=== PATIENT | male | born 1960 | race Caucasian/White ===

== ENCOUNTER 2016-12-28 04:10 | Inpatient (IN) | payer OTHER ==
[~2016-12-28] VITALS: Ht 162.6 cm; Wt 44.5 kg
[2016-12-28] VITALS (8 sets, daily range): BP systolic 89–113; BP diastolic 54–75
[~2016-12-28 04:10] MED LIST: PROPOFOL 200 MG/20 ML VIAL IV ONE
--- NOTE | 2016-12-28 04:10 | NUR ---
PT ANABEL ALS. TAKEN TO BED 11
--- NOTE | 2016-12-28 04:26 | NUR ---
Dr. Bruno evaluating patient at bedside.
[2016-12-28] MEDS ORDERED: NACL 0.9% 500 ML IV ONE ×2 (04:35)
[2016-12-28] MEDS ORDERED: MSCON15 PEG (04:36)
[2016-12-28] MEDS ORDERED: PANT40EC PEG (04:36)
[2016-12-28] MEDS ORDERED: HEPA500056 SUBQ (04:36)
[2016-12-28] MEDS ORDERED: ONDA4TAB PEG (04:36)
[2016-12-28] MEDS ORDERED: ASPI81CT89 PEG (04:36)
[2016-12-28] MEDS ORDERED: PUL.5N NEB (04:36)
[2016-12-28] MEDS ORDERED: ACET10SO IH (04:36)
[2016-12-28] MEDS ORDERED: MAGN400T7 PEG (04:36)
[2016-12-28] MEDS ORDERED: CARV6.25 PEG (04:36)
[2016-12-28] MEDS ORDERED: ATOR10TA PEG (04:36)
[2016-12-28] MEDS ORDERED: BEN50 PEG (04:36)
--- NOTE | 2016-12-28 04:38 | NUR ---
PATIENT ARRIVED FROM [facility] BY EMS ON VENTILATOR FOR FALLING OUT OF BED. PT TRACH SIZE SHILEY 8.0 DCT, VENTILATOR SETTING PER EMT AC-15 VT-450 PEEP +5 FIO2-2LPM, BUT PUT ON 30% FIO2 ON [facility] VENTILATOR. BS CLEAR, UNABLE TO OBTAIN SPUTUM VIA TRACHEAL SUCTION (NO SECREATIONS)
--- NOTE | 2016-12-28 04:40 | NUR ---
ANABEL FROM [facility], S/P FALL OUT OF BED. PT HAS TRACH. UNABLE TO MOVE RT ARM ON OWN VERY WELL. PT DOES SPEAK AND GAVE ME HIS SISTER'S PH # TO CALL. Allison is his sister @ [phone]. I talked with her per patient's request and let her know he was here. HX: CARDIOMYOPATHY, HEART FAILURE, RESP. FAILURE, HEP C. PT DENIES N/V/D; SKIN IS PINK/WARM/DRY; AAOX4.LUNGS CLEAR BL;ABD SOFT/FLAT-GTT PRESENT, HR EVEN AND REGULAR; PT DENIES ANY CP OR SOB AT THIS TIME; PATIENT STATES PAIN OF 0/10 AT THIS TIME; VSS; PATIENT POSITIONED FOR COMFORT; HOB ELEVATED; BEDRAILS UP X2; BED DOWN. ER MD MADE AWARE OF PT STATUS.
[2016-12-28 05:29] LABS: BILIRUBIN,URINE NEGATIVE (NEGATIVE); BLOOD, URINE NEGATIVE (NEGATIVE); COLOR,URINE YELLOW (YELLOW); LEUKOCYTE ESTERASE ,URINE NEGATIVE (NEGATIVE); NITRITE, URINE NEGATIVE (NEGATIVE); UGLUCOSE NEGATIVE (NEGATIVE)
[2016-12-28 05:33] LABS: HEMATOCRIT 32.4 % (36-52); HEMOGLOBIN 10.4 g/dL (12.0-18.0); MEAN CORPUSCULAR HEMOGLOBIN 29 pg (27-31); MEAN CORPUSCULAR HGB CONC 32 g/dL (33-37); MEAN CORPUSCULAR VOLUME 90 fL (80-94); PLATELET COUNT (AUTO) 215 K/uL (140-450); RED BLOOD CELL COUNT(AUTO) 3.59 MIL/uL (4.20-6.10); RED CELL DISTRIBUTION WIDTH 15.1 % (11.6-13.7); WHITE BLOOD COUNT (AUTO) 11.4 K/uL (4.8-10.8)
[2016-12-28 05:46] LABS: PROTHROMBIN TIME 10.8 secs (10.8-13.4)
[2016-12-28 05:48] LABS: ALBUMIN 2.7 g/dL (3.4-5.0); CREATININE 0.3 mg/dL (0.7-1.3); POTASSIUM 4.2 mmol/L (3.5-5.1); TOTAL BILIRUBIN 0.1 mg/dL (0.0-1.0)
[2016-12-28 05:51] LABS: EOSINOPHILS % (MANUAL) 2 % (0-4); LYMPHOCYTES % (MANUAL) 16 % (20-46); MONOCYTES % (MANUAL) 4 % (5-12)
[2016-12-28 06:01] LABS: ANION GAP -2.8 (8-16)
--- NOTE | 2016-12-28 06:03 | NUR ---
PT TAKEN TO CT
--- NOTE | 2016-12-28 06:03 | NUR ---
Rahul he in [facility] - 12/28/16 at 0603 by PRUDENCE PT TAKEN TO BED 11
--- NOTE | 2016-12-28 06:24 | NUR ---
PT RETURN FROM CT
[2016-12-28 06:31] LABS: APPEARANCE,URINE HAZY (CLEAR)
[2016-12-28 06:32] LABS: RBC,URINE 0-5 (RARE) /HPF (0-5); WBC,URINE 0-5 (RARE) /HPF (0-5)
[2016-12-28] MEDS ORDERED: ACETAMINOPHEN 650 MG/20.3 ML UDC ONE (06:43)
--- NOTE | 2016-12-28 07:10 | NUR ---
REPORT TO SMOOTH LEONG
[2016-12-28] MEDS ORDERED: ALBUTEROL SULFATE/IPRATROPIU 3 ML SOL IH SCH ×2 (07:55→11:00)
[2016-12-28] MEDS ORDERED: ALBUTEROL SULFATE/IPRATROPIU 3 ML SOL IH ONE (08:00)
[2016-12-28] MEDS ORDERED: MORPHINE TAB ER 15 MG TABER PO PRN (08:05)
[2016-12-28] MEDS ORDERED: ONDANSETRON 4 MG TAB PEG PRN (08:05)
--- NOTE | 2016-12-28 08:45 | NUR ---
PT WAS TRANSPORTED FROM ER TO TELEMETRY FLOOR, SAME VENT SETTINGS. SPUTUM COLLECTED AT 0850; NO INCIDENTS DURING TRANSPORT. PT RESTING WITHOUT DISTRESS NOTED.
--- NOTE | 2016-12-28 08:45 | NUR ---
Patient will be admitted to care of DR REYES. Admited to [facility]. Will go to room 123B. Belongings list completed. Report to SMOOTH GARCIA.
[2016-12-28] MEDS ORDERED: ACETYLCYSTEINE 10% (100 MG/ML) 100 MG/ML VIAL INH SCH (09:00)
[2016-12-28] MEDS ORDERED: ENOXAPARIN 40 MG/0.4 ML SYR SUBQ SCH (09:00)
[2016-12-28] MEDS ORDERED: PANTOPRAZOLE 40 MG TABEC PO SCH (09:00)
[2016-12-28] MEDS ORDERED: BUDESONIDE 0.5 MG/2 ML NEBU INH SCH (09:00)
[2016-12-28] MEDS ORDERED: CARVEDILOL 6.25 MG TAB PEG SCH (09:00)
--- NOTE | 2016-12-28 09:20 | NUR ---
PT RECEIVED FROM ED VIA GURNEY. PT WAS TRANSPORTED WITH TRACH TO [facility]. PT ALERT AND ORIENTED X4. PT IS ABLE TO MAKE NEEDS KNOWN BY GESTURING WITH HIS MOUTH DUE TO TRACH. PT IS ABLE TO LIFT ABLE WELL IN BED. HE IS ALSO ABLE TO MOVE RIGHT ARM SLIGHTLY BUT CAN NOT MOVE LEFT UPPER EXT AT ALL. G TUBE PRESENT AND CLAMP.
--- NOTE | 2016-12-28 09:53 | NUR ---
PATIENT HAS BEEN SCREENED AND CATEGORIZED HIGH NUTRITION RISK. PATIENT WILL BE SEEN WITHIN 1-2 DAYS OF ADMISSION. 12/28/16-12/29/[address]
--- NOTE | 2016-12-28 10:48 | NUR ---
PT CONTINUES ON PREVIOUS SETTINGS, RESTING COMFORTABLY WITHOUT DIISTRESS NOTED AT THIS TIME. PT WAS SUCTIONED, OBTAINED MODERATE THICK MOONEY YELLOW SECRETIONS, HR94,SAT93% ON 30% FI02
[2016-12-28] MEDS ORDERED: LANSOPRAZOLE 30 MG CAPDR PEG SCH (11:39)
[2016-12-28] MEDS ORDERED: ALBUTEROL SULFATE/IPRATROPIU 3 ML SOL IH PRN (11:40)
[2016-12-28] MEDS: LEVOFLOXACIN 750 MG/D5W PREMIX 150 ML IV SCH (11:42)
[2016-12-28] MEDS: ASPIRIN 81 MG TAB.CHEW PEG SCH (11:46)
[2016-12-28] MEDS: MAGNESIUM OXIDE 400 MG TAB PEG SCH ×2 (11:48→21:55)
--- NOTE | 2016-12-28 12:15 | NUR ---
PT REMAINS AWAKE AND CALM IN BED. PT IS NSR IN THE MONITOR. NO ACUTE DISTRESS NOTED. SIDE RAILS UP X2 PER PT'S REQUEST. PT IS BEING SUCTIONED FREQUENTLY, SUCTIONING THICK WHITE SPUTUM.
[2016-12-28] MEDS: ALBUTEROL SULFATE/IPRATROPIU 3 ML SOL IH SCH ×2 (12:54→19:37)
--- NOTE | 2016-12-28 13:57 | NUR ---
ABG DRAWN ON RR WITHOUT INCIDENT AND AT 1410 RESULTS WERE CALLED TO DR. GALVIN BY RT KATHY GALDAMEZ WITH NO CHANGES MADE TO VENT.
[2016-12-28] MEDS: MORPHINE SULFATE 4 MG/ML SYR IVP PRN (14:29)
--- NOTE | 2016-12-28 14:30 | NUR ---
MORPHINE SULFATE 2MG IVP GIVEN AT 1429 FOR C/O RIGHT ARM PAIN 10/30.
--- NOTE | 2016-12-28 17:29 | NUR ---
PT RESTING COMFORTABLY WITHOUT DISTRESSNOTED AT THIS TIME
[2016-12-28] MEDS: ATORVASTATIN 20 MG TAB PEG SCH (18:18)
[2016-12-28] MEDS: NACL 0.9% 1,000 ML IV SCH ×2 (18:19→20:35)
[2016-12-28] MEDS: CARVEDILOL 6.25 MG TAB PEG SCH (18:21)
--- NOTE | 2016-12-28 19:30 | NUR ---
PT IN BED AWAKE AND CALM. NO ACUTE DISTRESS NOTED. PT REMAINS NSR ON THE MONITOR. V/S STABLE.
[2016-12-28] MEDS: BUDESONIDE 0.5 MG/2 ML NEBU INH SCH (19:40)
--- NOTE | 2016-12-28 19:51 | NUR ---
RCV'D PT ON MECHANICAL VENTILATION WITH SHILEY 8 DCT TRACH. VENT SETTINGS ARE AC 15,450,30%,+[address] AND SECURED. STOMA IS CLEAN. VENT IS CONNECTED TO RED OUTLET. ALARMS ARE WORKING AND AUDIBLE. AMBU BAG AT BEDSIDE. NO SOB OR DISTRESS NOTED. PT IS ALERT. SPO2 93% HR 98 BS CLEAR HHN TX GIVEN. WILL CONTINUE TO MONITOR.
--- NOTE | 2016-12-28 20:00 | NUR ---
RECIEVED PATIENT WITH VENT AND TRACHEOSTOMY BREATHING EVEN AND UNLABORED VITAL STABLE WILL CONTINUE MONITORING PATEINT.
[2016-12-28] MEDS ORDERED: diphenhydrAMINE 12.5 MG/5 ML UDC PEG PRN (21:00)
--- NOTE | 2016-12-28 21:10 | NUR ---
PAGED DR COLLIER TO VERIFY ORDER OF PULMICORT 2 MG WHICH MEANS 4 VIALS OF 0.5MG. SPOKE WITH FORM SETTER SUPERVISOR DR WHICH IS DR MALIN. AND DR MALIN SAID TO GIVE 2 MG ORDERED. I ONLY GAVE 0.5MG I DID NOT FEEL COMFORTABLE WITH ORDER. PT PRESSURES ARE IN NORMAL RANGES. CLEAR BREATH SOUNDS. SPO2 93% ON 30% FIO2. PT IS ALERT. NO SOB OR DISTRESS NOTED. INFORMED DIRECTOR MARNIE. WILL KEEP MONITORING PT.
[2016-12-28] MEDS ORDERED: diphenhydrAMINE 12.5 MG/5 ML UDC ONE (21:47)
[2016-12-28] MEDS: acetaZOLAMIDE 250 MG TAB GT SCH (21:57)
[2016-12-29] VITALS: BP 117/70
[2016-12-29] MEDS: MORPHINE SULFATE 4 MG/ML SYR IVP PRN ×3 (00:11→11:18)
[2016-12-29] MEDS: ALBUTEROL SULFATE/IPRATROPIU 3 ML SOL IH SCH ×3 (01:37→14:11)
--- NOTE | 2016-12-29 01:47 | NUR ---
HHN TX OF DUONEB GIVEN. PT IS AWAKE. SXN'D PER PT REQUEST BUT NOTHING CAME OUT. BS CLEAR AND DIMINISHED. NO SOB OR DISTRESS NOTED. WILL CONTINUE TO MONITOR.
[2016-12-29 04:00] VITALS: BP 121/55
--- NOTE | 2016-12-29 04:40 | NUR ---
MEDICATED PRN FOR LEG PAIN, REPOSITION FOR COMFORT, 5ML G-TUBE RESIDUAL NOTED, KEEP HOB ELEVATED AT ALL TIMES, MONITORED CLOSELY.
[2016-12-29 06:07] LABS: BASOPHILS # (AUTO) 0.3 K/uL (0.00-0.22); BASOPHILS % (AUTO) 2.6 % (0.0-2.0); EOSINOPHILS # (AUTO) 0.1 K/uL (0-0.4); EOSINOPHILS % (AUTO) 0.9 % (0.0-4.0); HEMOGLOBIN 9.8 g/dL (12.0-18.0); LYMPHOCYTES # (AUTO) 1.8 K/uL (2.0-11.5); LYMPHOCYTES % (AUTO) 15.9 % (20.5-51.1); MEAN CORPUSCULAR HEMOGLOBIN 29 pg (27-31); MEAN CORPUSCULAR HGB CONC 33 g/dL (33-37); MEAN CORPUSCULAR VOLUME 89 fL (80-94); MONOCYTES % (AUTO) 8.6 % (1.7-9.3); PLATELET COUNT (AUTO) 219 K/uL (140-450); RED BLOOD CELL COUNT(AUTO) 3.37 MIL/uL (4.20-6.10); RED CELL DISTRIBUTION WIDTH 15.1 % (11.6-13.7); WHITE BLOOD COUNT (AUTO) 11.2 K/uL (4.8-10.8)
--- NOTE | 2016-12-29 06:19 | NUR ---
kEPT PATIENT COMFORTABLE OVERNIGHT HAD COMPLAINT OF ON AND OFF PAIN , PAIN MEDS GIVEN ORDERED PRN . VITAL SIGNS STABLE ALL CARES GIVEN.
[2016-12-29 06:28] LABS: ANION GAP 6.8 (8-16); CARBON DIOXIDE 35.1 mmol/L (21-32); CREATININE 0.5 mg/dL (0.7-1.3); POTASSIUM 3.9 mmol/L (3.5-5.1)
[2016-12-29] MEDS ORDERED: PANTOPRAZOLE 40 MG TABEC PO SCH (06:30)
[2016-12-29] MEDS ORDERED: LANSOPRAZOLE 30 MG CAPDR PEG SCH (06:30)
--- NOTE | 2016-12-29 06:50 | NUR ---
PT HAD LARGE SOFT BM, PERINEAL CARE DONE, REPOSITION FOR COMFORT, SUCTION ORALLY WITH YANKAUER, WHITE SECRETION MODERATE AMOUNT NOTED, PT MOUTH WORDS THAT HE WANTS TO GO BACK TO [facility], WILL ENDORSE, MONITORED CLOSELY.
--- NOTE | 2016-12-29 07:15 | NUR ---
RECEIVED REPORT FROM THE ROLL FILLER NURSE AT BEDSIDE FOR CONTINUITY OF CARE. PT IS AWAKE AND ORIENTED. PT HAS A VENT TO TRACH. PEEP 5, FIOS 30%, AC 15. PT VERBALIZES BY MOUTHING THE WORDS. PT WOULD LIKE TO GO BACK TO [facility] TODAY. PT HAS G TUBE, ISOSOURCE 80ML, H20 FLUSH Q6 HR 200ML. SITE IS DRY AND INTACT. FLOWING WELL. SKIN IS INTACT. SLIGHT REDNESS STARTING TO FORM FROM INCONTINENT DERMATITIS. IV ON L FA 20G NS AT 80ML/HR. PER ROLL FILLER RN, NO PNA, ATELECTASIS AND MUCOUS PLUG IN CHEST. LAB IS UNREMARKABLE EXCEPT LOW MG, 1.6. WILL NOTIFY MD WHEN HE ARRIVES. WOULD LIKE TO ME CALL HIS SISTER TO GET HERE SOON.
--- NOTE | 2016-12-29 07:30 | NUR ---
V/S WITHIN NORMAL RANGE. DENIES PAIN. PT IS COLD. PUT A BLANKET ON HIM. ADMISSIONS WAS HERE. PUT UP SIGN STATING FAMILY WILL NEED TO COME BY AND SIGN PAPERS. WILL CONTINUE TO MONITOR PT.
[2016-12-29 08:00] VITALS: BP 120/67
--- NOTE | 2016-12-29 08:01 | NUR ---
RECEIVED PT STABLE ON VENT SUPPORT AT DOCUMENTED SETTINGS, SXN'D SCANT CLEAR WHITE THIN SECRETIONS, HHN TX GIVEN, TOLERATED WELL, NO RESP DISTRESS OR SOB NOTED, SHILEY 8 DCT SECURED/MIDLINE/PATENT, CONT PULSE OX ON, ALARMS SET AND AUDIBLE, VENT PLUGGED INTO RED OUTLET, AMBU BAG BEDSIDE, WILL CONTINUE TO MONITOR.
[2016-12-29] MEDS: BUDESONIDE 0.5 MG/2 ML NEBU INH SCH (08:37)
[2016-12-29] MEDS ORDERED: LEVOFLOXACIN 750 MG/D5W PREMIX 150 ML IV SCH (09:00)
[2016-12-29] MEDS: NACL 0.9% 1,000 ML IV SCH (09:05)
[2016-12-29] MEDS: acetaZOLAMIDE 250 MG TAB GT SCH (09:22)
[2016-12-29] MEDS: ATORVASTATIN 20 MG TAB PEG SCH (09:23)
[2016-12-29] MEDS: MAGNESIUM OXIDE 400 MG TAB PEG SCH (09:23)
[2016-12-29] MEDS: ASPIRIN 81 MG TAB.CHEW PEG SCH (09:23)
[2016-12-29] MEDS: CARVEDILOL 6.25 MG TAB PEG SCH (09:23)
[2016-12-29] MEDS: LEVOFLOXACIN 750 MG/D5W PREMIX 150 ML IV SCH (09:24)
--- NOTE | 2016-12-29 09:30 | NUR ---
STOPPED THE FEEDING. CHECKED FOR PLACEMENT. CHECKED FOR RESIDUAL. NONE. CHECK FOR PATENCY. CRUSHED ALL MEDS AND ADMINISTERED VIA G TUBE. PT TOLERATED WELL. PT IS GETTING HOT, WANTED A FAN. FOUNTAIN PEN NIBS INSPECTOR CHANGED PT AND REPOSITIONED HIM BUT HE DID NOT WANT TO BE REPOSITIONED. WE EAXPLAINED THE RISKS OF P U. PT VERBALIZED UNDERSTANDING BUT HE DOES NOT CARE. HE DOESN'T WANT THE PILLOW UNDER HIS BACK AND DOESN'T WANT THE ROLLED UP TOWEL ON THE SIDE OF HIS HEAD. HE SAYS HE DOESN'T CARE. HE DOESN'T WANT IT. REMOVED THE PILLOW AND TOWEL. HE TRIED TO KICK THE FOUNTAIN PEN NIBS INSPECTOR AND CURSED AT HER. WILL CONTINUE TO MONITOR PT. Addendum: 12/29/16 at 1214 by Concepcion Menendez RN LATE ENTRY. RESTARTED FEEDING.
[2016-12-29] MEDS ORDERED: LEVO750T2 PEG (09:33)
[2016-12-29] MEDS ORDERED: DIA250 GT (09:33)
[2016-12-29] MEDS ORDERED: CARVEDILOL 3.125 MG TAB PEG SCH ×2 (09:55→17:00)
--- NOTE | 2016-12-29 10:30 | NUR ---
CM NOTE SPOKE W/ BENJAMIN FROM [facility]. MADE AWARE THAT PATIENT HAS DC ORDERS. PER BENJAMIN, SHE WILL BE ABLE TO TAKE PATIENT BACK AND CURRENTLY IN THE PROCESS OF RE-ARRANGING ROOMS. WILL BE CONTACTED SOON ON WHERE AND WHEN PATIENT CAN BE DISCHARGED.
--- NOTE | 2016-12-29 10:30 | NUR ---
CM NOTE INITIAL REVIEW FAXED TO [facility] / FAX# [phone], ATTN: NIC #[phone]
--- NOTE | 2016-12-29 10:54 | NUR ---
PT NOW HAS A FAN. PT WET. CHANGED PT. TRIED REPOSITIONING PT, BUT NO. HE DOESN'T WANT TO BE BOTHERED. PULLED UP. WANTS TO KNOW WHEN HE WILL BE TRANSFERRED BACK TO FACILITY. TOLD HIM WE'RE WORKING ON IT. WILL CONTINUE TO MONITOR PT.
[2016-12-29 12:01] VITALS: BP 155/89
--- NOTE | 2016-12-29 12:14 | NUR ---
PT CLAIMS THE BED WAS MOVING. CHECKED THE BED. BRAKE ON. BED IS NOT MOVING. EXPLAINED POSSIBLY PT WAS SLIDING DOWN ON HIS BED SINCE HE IS SITTING UP IN HIGH FOWLERS. WILL CONTINUE TO MONITOR PT.
--- NOTE | 2016-12-29 14:02 | NUR ---
ANITA YANCEY LM W/ BENJAMIN AT [facility] [place] RE. DISCHARGE. [phone]
--- NOTE | 2016-12-29 14:23 | NUR ---
CM NOTE PATIENT TO BE TRANSFERRED BY [facility] GOING TO [facility] RM 3B. ETA [id number]. CAROL REBOLLAR MADE AWARE. AUTH# PROVIDED BY [facility]: #[id number]
[2016-12-29] MEDS: LORazepam 2 MG/ML VIAL IVP PRN ×2 (14:57→14:59)
--- NOTE | 2016-12-29 15:20 | NUR ---
[facility] EARLY. GAVE REPORT TO TRANSPORTER. COPIER TECHNICIAN GETTING PT READY INTO TRANSPORT GOWN. REMOVED ID BANDS, TELE MONITOR, IV, CANNULA INTACT. NO BLEEDING NOTED. D/C'D TUBE FEEDING. PT IN STABLE CONDITION. SMILING, HAPPY TO GO BACK TO HIS FACILITY. ALL PERSONAL BELONGINGS IN BAG.
--- NOTE | 2016-12-29 15:34 | NUR ---
GAVE REPORT TO SMOOTH WILKINSON AT [facility]. PT IS READY TO GO BACK TO HIS FACILITY, BED 3B. [facility] IN THE PROCESS OF TRANSFERRING ON TO [facility].
--- NOTE | 2016-12-29 15:40 | NUR ---
[facility] TAKING PT ON A GURNEY BACK TO [facility]. PT IN STABLE CONDITION.
== END 2016-12-29 15:40 | DRG 140 ==
LOC: MED 04:10 → MTU 08:05
PROVIDERS: ADMIT Hospitalist; ATTEND Hospitalist
PROC: 5A1935Z Respiratory Ventilation, Less than 24 Consecutive Hours (ICD-10-PCS; principal; 2016-12-28)
PROC: 5A1935Z Respiratory Ventilation, Less than 24 Consecutive Hours (ICD-10-PCS; 2016-12-29)
DX: J44.0 Chronic obstructive pulmonary disease with (acute) lower respiratory infection (principal); Z99.11 Dependence on respirator [ventilator] status; J18.9 Pneumonia, unspecified organism; J96.10 Chronic respiratory failure, unspecified whether with hypoxia or hypercapnia; T17.890A Other foreign object in other parts of respiratory tract causing asphyxiation, initial encounter; R64 Cachexia; Z93.0 Tracheostomy status; G82.20 Paraplegia, unspecified; R13.10 Dysphagia, unspecified; Z66 Do not resuscitate; J98.11 Atelectasis; B18.2 Chronic viral hepatitis C; F20.9 Schizophrenia, unspecified; J98.19 Other pulmonary collapse; Z88.0 Allergy status to penicillin; Z79.82 Long term (current) use of aspirin; Z79.899 Other long term (current) drug therapy; Z93.1 Gastrostomy status; Z87.891 Personal history of nicotine dependence; Y93.89 Activity, other specified; W06.XXXA Fall from bed, initial encounter; Y92.128 Other place in nursing home as the place of occurrence of the external cause; Y99.8 Other external cause status; Z74.01 Bed confinement status
CPT/HCPCS: 36415; 36600; 70450; 71010; 71250; 72125; 73030; 80048; 80053; 81001; 82803; 83605; 83735; 83880; 84484; 85025; 85610; 85730; 87040; 87070; 87077; 87086; 87186; 87205; 93005; 94002; 94003; 94640; 96360; 99285; J1644; J1956; J2060; J2270; J2704; J7030; J7620; J7626; Q0092; Q0163

== ENCOUNTER 2017-02-02 20:49 | Emergency (ER) | payer OTHER ==
[~2017-02-02] VITALS: Ht 172.7 cm; Wt 44.5 kg
[~2017-02-02 20:49] MED LIST changes: +ACET10SO IH; +ASPI81CT89 PEG; +ATOR10TA PEG; +BEN50 PEG; +CARV6.25 PEG; +DIA250 GT; +HEPA500056 SUBQ; +LEVO750T2 PEG; +MAGN400T7 PEG; +MSCON15 PEG; +ONDA4TAB PEG; +PANT40EC PEG; -PROPOFOL 200 MG/20 ML VIAL IV ONE; +PUL.5N NEB
--- NOTE | 2017-02-02 20:49 | NUR ---
PT PLACED IN BED 2 BY EMS. RT AT BEDSIDE.
[2017-02-02] MEDS ORDERED: ALBUTEROL 0.083% 2.5 MG/3 ML NEBU INH ONE (21:10)
[2017-02-02 21:12] VITALS: BP 131/77
[2017-02-02 21:49] LABS: HEMATOCRIT 26.4 % (36-52); HEMOGLOBIN 8.6 g/dL (12.0-18.0); MEAN CORPUSCULAR HEMOGLOBIN 28 pg (27-31); MEAN CORPUSCULAR HGB CONC 32 g/dL (33-37); MEAN CORPUSCULAR VOLUME 87 fL (80-94); PLATELET COUNT (AUTO) 375 K/uL (140-450); RED BLOOD CELL COUNT(AUTO) 3.04 MIL/uL (4.20-6.10); RED CELL DISTRIBUTION WIDTH 14.9 % (11.6-13.7)
[2017-02-02 22:01] LABS: CARBON DIOXIDE 37.6 mmol/L (21-32); CREATININE 0.5 mg/dL (0.7-1.3); POTASSIUM 4.6 mmol/L (3.5-5.1)
[2017-02-02 22:07] LABS: ALBUMIN 2.7 g/dL (3.4-5.0); TOTAL BILIRUBIN 0.1 mg/dL (0.0-1.0)
[2017-02-02 22:18] LABS: WHITE BLOOD COUNT (AUTO) 18.3 K/uL (4.8-10.8)
[2017-02-02 22:19] LABS: LYMPHOCYTES % (MANUAL) 7 % (20-46); MONOCYTES % (MANUAL) 5 % (5-12)
--- NOTE | 2017-02-02 22:33 | NUR ---
56Y/M BIBA FROM [facility] C/O SOB. HX HEART FAILURE, HEP. C, TRACH, MECH. VENT. ALLERGY TO PENICILLNS. PER EMS PT WAS HAVING SOB X1 HOUR, PT DENIES PAIN, N/V/D. PT IS AA&OX4. BL BREATH SOUNDS DIMINSHED THROUGHOUT. PT HAS GTUBE INTACT. SKIN INTACT. ER MD AWARE OF PT STATUS, SIDE RAILS UP X2.
[2017-02-02] MEDS ORDERED: LEVOFLOXACIN 750 MG/D5W PREMIX 150 ML IV ONE (22:45)
--- NOTE | 2017-02-02 23:02 | NUR ---
TRIED PERFORMING AN ABG. AFTER A FAILED ATTEMPTED HE NO LONGER LET US TRY AGAIN. I INFORMED THE DR AND HE SAID TO THAT I WAS FINE. PATIENT O2 SATURATION WAS 98% AND DOESNT APPEAR TO BE IN ANY DISTRESS.
[2017-02-02] MEDS ORDERED: LEVOFLOXACIN 750 MG TAB GT ONE (23:30)
--- NOTE | 2017-02-03 01:19 | NUR ---
REPORT CALLED TO [facility] TO [facility] 45 MIN.
--- NOTE | 2017-02-03 01:28 | NUR ---
[facility] at bedside for transfer/discharge.
[2017-02-03 01:35] VITALS: BP 131/77
--- NOTE | 2017-02-03 01:48 | NUR ---
Patient discharged with v/s stable. Written and verbal after care instructions given and explained. Patient alert, oriented and verbalized understanding of instructions. Ambulance Transport with to retirement. All questions addressed prior to discharge. ID band removed. Patient advised to follow up with PMD. Rx of LEVAQUIN 500MG given. Patient educated on indication of medication including possible reaction and side effects. Opportunity to ask questions provided and answered.
== END 2017-02-03 01:48 ==
LOC: MED 20:49
DX: J96.10 Chronic respiratory failure, unspecified whether with hypoxia or hypercapnia (principal)
CPT/HCPCS: 36415; 71010; 80053; 84484; 85025; 87040; 87205; 89220; 93005; 94640; 99285; J7613; Q0092; 87070

== ENCOUNTER 2018-03-02 15:50 | Emergency (ER) | payer MEDICAID, OTHER ==
[~2018-03-02] VITALS: Ht 165.1 cm; Wt 76.2 kg
[~2018-03-02 15:50] MED LIST changes: -ACET10SO IH; -ASPI81CT89 PEG; +ATI.5 PO; -ATOR10TA PEG; -BEN50 PEG; -DIA250 GT; +FERR15DR3 PO; -LEVO750T2 PEG; -ONDA4TAB PEG; -PANT40EC PEG; -PUL.5N NEB; +QUET50TA PO
[2018-03-02 16:03] VITALS: BP 138/72
[2018-03-02 16:12] VITALS: BP 138/22
[2018-03-02 17:05] LABS: BASOPHILS % (AUTO) 0.2 % (0.0-2.0); EOSINOPHILS # (AUTO) 0.2 K/uL (0-0.4); EOSINOPHILS % (AUTO) 2.8 % (0.0-4.0); HEMATOCRIT 30.7 % (36-52); HEMOGLOBIN 9.9 g/dL (12.0-18.0); LYMPHOCYTES # (AUTO) 1.1 K/uL (2.0-11.5); LYMPHOCYTES % (AUTO) 13.3 % (20.5-51.1); MEAN CORPUSCULAR HEMOGLOBIN 28 pg (27-31); MEAN CORPUSCULAR HGB CONC 32 g/dL (33-37); MEAN CORPUSCULAR VOLUME 85.9 fL (80-94); MONOCYTES # (AUTO) 0.7 K/uL (0.8-1.0); MONOCYTES % (AUTO) 8.5 % (1.7-9.3); NEUTROPHILS # (AUTO) 6.4 K/uL (1.8-7.7); NEUTROPHILS % (AUTO) 75.2 % (42.2-75.2); PLATELET COUNT (AUTO) 234 K/uL (140-450); RED BLOOD CELL COUNT(AUTO) 3.57 MIL/uL (4.20-6.10); RED CELL DISTRIBUTION WIDTH 15.7 % (11.6-13.7); WHITE BLOOD COUNT (AUTO) 8.5 K/uL (4.8-10.8)
[2018-03-02 17:29] LABS: CARBON DIOXIDE 34.5 mmol/L (21-32); CREATININE 0.6 mg/dL (0.7-1.3); POTASSIUM 4.5 mmol/L (3.5-5.1)
[2018-03-02 17:30] LABS: ALBUMIN 2.9 g/dL (3.4-5.0); TOTAL BILIRUBIN 0.2 mg/dL (0.0-1.0)
[2018-03-02 19:42] VITALS: BP 132/62
== END 2018-03-02 19:42 ==
LOC: MED 15:50
DX: R06.02 Shortness of breath (principal); I50.9 Heart failure, unspecified; J44.9 Chronic obstructive pulmonary disease, unspecified; I42.9 Cardiomyopathy, unspecified; Z93.1 Gastrostomy status; Z79.01 Long term (current) use of anticoagulants; Z79.891 Long term (current) use of opiate analgesic; Z79.899 Other long term (current) drug therapy; Z88.0 Allergy status to penicillin
CPT/HCPCS: 36415; 71045; 80053; 83605; 83880; 85025; 87040; 99284; Q0092

== ENCOUNTER 2018-04-19 16:18 | Inpatient (IN) | payer MEDICAID ==
[~2018-04-19] VITALS: Ht 177.8 cm; Wt 58.5 kg
[~2018-04-19 16:18] MED LIST changes: -FERR15DR3 PO; +FERR15DR5 PEG
[2018-04-19 16:20] VITALS: BP 142/27
--- NOTE | 2018-04-19 16:20 | NUR ---
PLACED ON VENTILATOR WITH SETTINGS RECEIVED FROM [facility] NOTED BREATH SOUND COARSE RHONCHI BILATERAL SPUTUM OBTAINED
[2018-04-19 16:32] VITALS: BP 142/47
--- NOTE | 2018-04-19 16:53 | NUR ---
ANABEL FROM [facility], C/O VOMITING X 2 @ 1530 AND 1545. REPORTED THAT VOMIT WAS DARK RED. NO VOMITING AT THIS TIME. REPORTED THAT HE STARTED ANTIBIOTICS FOR PNA YESTERDAY. CHRONIC TRACH TO VENT. COARSE LUNG SOUND, SYMETRICAL. BED IS DOWN, LOCKED, BED RAILS X 2, ERMD NOTIFIED OF PATIENT CONDITION HX AND RX IN PACKET.
[2018-04-19] MEDS ORDERED: ONDANSETRON 4 MG/2 ML VIAL IVP ONE ×2 (17:05→19:10)
--- NOTE | 2018-04-19 17:16 | NUR ---
xray by bedside
--- NOTE | 2018-04-19 17:27 | NUR ---
LAB IN PATIENTS ROOM
[2018-04-19 17:45] LABS: BASOPHILS % (AUTO) 0.3 % (0.0-2.0); EOSINOPHILS % (AUTO) 0.1 % (0.0-4.0); HEMATOCRIT 31.8 % (36-52); HEMOGLOBIN 10.2 g/dL (12.0-18.0); LYMPHOCYTES # (AUTO) 1.3 K/uL (2.0-11.5); LYMPHOCYTES % (AUTO) 11.3 % (20.5-51.1); MEAN CORPUSCULAR HEMOGLOBIN 28 pg (27-31); MEAN CORPUSCULAR HGB CONC 32 g/dL (33-37); MEAN CORPUSCULAR VOLUME 86.1 fL (80-94); MONOCYTES % (AUTO) 8.4 % (1.7-9.3); NEUTROPHILS # (AUTO) 9.3 K/uL (1.8-7.7); NEUTROPHILS % (AUTO) 79.9 % (42.2-75.2); PLATELET COUNT (AUTO) 363 K/uL (140-450); RED BLOOD CELL COUNT(AUTO) 3.69 MIL/uL (4.20-6.10); WHITE BLOOD COUNT (AUTO) 11.6 K/uL (4.8-10.8)
[2018-04-19 18:09] LABS: ALBUMIN 2.8 g/dL (3.4-5.0); ANION GAP 6.9 (8-16); CREATININE 0.6 mg/dL (0.7-1.3); TOTAL BILIRUBIN 0.3 mg/dL (0.0-1.0)
--- NOTE | 2018-04-19 18:10 | NUR ---
ESCORTED PATIENT TO CT, RT PRESENT, VSS
[2018-04-19 18:20] LABS: CARBON DIOXIDE 42.1 mmol/L (21-32)
[2018-04-19 18:21] VITALS: BP 139/64
[2018-04-19 18:34] LABS: APPEARANCE,URINE SL CLOUDY (CLEAR); BILIRUBIN,URINE NEGATIVE (NEGATIVE); BLOOD, URINE TRACE-I (NEGATIVE); COLOR,URINE YELLOW (YELLOW); LEUKOCYTE ESTERASE ,URINE NEGATIVE (NEGATIVE); NITRITE, URINE NEGATIVE (NEGATIVE); PH,URINE 8.5 (5.0-9.0); UGLUCOSE NEGATIVE (NEGATIVE)
[2018-04-19 18:42] LABS: RBC,URINE 0-5 (RARE) /HPF (0-5)
--- NOTE | 2018-04-19 18:47 | NUR ---
FAMILY AT BEDSIDE
--- NOTE | 2018-04-19 19:01 | NUR ---
[address] BRANTLEY AWARE.
--- NOTE | 2018-04-19 19:02 | NUR ---
1850 SXNED PATIENT WITH NS LAVAGE. PT HAS BLOODY SECRETIONS
--- NOTE | 2018-04-19 19:05 | NUR ---
PATIENT COMPLAINING OF NAUSEA, DR BRANTLEY MADE AWARE. ORDERS RECIEVED.
--- NOTE | 2018-04-19 19:13 | NUR ---
RT AT BEDSIDE.
--- NOTE | 2018-04-19 19:13 | NUR ---
SMALL AMOUNT OF DARK BROWN VOMIT NOTED, ZOFRAN GIVEN ORDERED
--- NOTE | 2018-04-19 19:21 | NUR ---
REPORT GIVEN TO SMOOTH MASON, PATIENT VSS AT THIS TIME
[2018-04-19] MEDS ORDERED: HYDROcodone/APAP 5/325 MG 1 TAB TAB PO PRN (19:25)
[2018-04-19] MEDS ORDERED: ONDANSETRON 4 MG/2 ML VIAL IM/IVP PRN (19:25)
[2018-04-19] MEDS ORDERED: ACETAMINOPHEN 325 MG TAB PO PRN (19:25)
[2018-04-19] MEDS ORDERED: DOCUSATE SODIUM 100 MG GELCAP PO PRN (19:25)
--- NOTE | 2018-04-19 19:33 | NUR ---
192 PT VOMITTED COFFEE GROUND COLOR.. CLEANED PT AND TRACH CARE DONE. FAMILY AT BEDSIDE. ALSO SXNED BRIGHT RED BLOOD FROM TRACH
[2018-04-19] MEDS ORDERED: POTASSIUM CHLORIDE 20% 40 MEQ/15 ML UDC GT ONE (19:45)
[2018-04-19] MEDS ORDERED: AZITHROMYCIN 500 MG in DEXTROSE 5% 250 ML IV SCH (20:00)
[2018-04-19 20:18] LABS: BARBITURATE, URINE NEG. ng/ml (NEG <=200); BENZODIAZEPINE, URINE NEG. ng/mL (NEG <=200); CANNABINOID, URINE NEG. ng/mL (NEG <=50); COCAINE, URINE NEG. ng/mL (NEG <=300); OPIATE, URINE POS. ng/mL (NEG <=2000); PHENCYCLIDINE SCREEN,URINE NEG. ng/mL (NEG <=25)
[2018-04-19 20:28] LABS: PROTHROMBIN TIME 10.3 secs (10.8-13.4)
--- NOTE | 2018-04-19 20:29 | NUR ---
INFORMED DR AMARO THAT PT REFUSED BLOOD CULTURES FROM LAB. PT STATES TOO PANIFUL. A&OX4. VSS. CONTINUE TO MONITOR.
[2018-04-19 20:40] LABS: MAGNESIUM 2.2 mg/dL (1.8-2.4)
[2018-04-19 20:41] LABS: CHOL/HDL RATIO 3.4 (1-4.5); THYROID STIMULATING HORMONE 1.25 uIU/mL (0.34-3.74)
--- NOTE | 2018-04-19 21:00 | NUR ---
ADMITTED A 58 Y/O MALE FROM [facility]IA [facility] WITH CHIEF COMPLAINT OF VOMITING. PATIENT IS VENTILATOR DEPENDENT,VENTILATOR COMPUTER BUILDER BY RT,WAS UNCOOPERATIVE TO TREATMENT. TRANSFERRED PATIENT TO BED WITH 2 PERSON ASSIST. SKIN INTACT. MRSA NASAL SWAB DONE. PERSONAL BELONGINGS AT BEDSIDE TABLE(2 SMALL PILLOW).ROUTINE ADMISSION CARE DONE AND CARRY ORDERS. CHANGED/ CLEANED PATIENT AND PLACE IN COMFORTABLE POSITION WITH HOB ELEVATED.EXPLAINED PLAN OF CARE. CALL LIGHT WITHIN REACH. FALL PRECAUTION APPLIED.SUCTIONED PATIENT WITH WHITE SECRETIONS MINIMAL AMOUNT. PATIENT TOLERATED WELL. ALL NEEDS ATTENDED. WILL CONTINUE TO MONITOR
--- NOTE | 2018-04-19 21:10 | NUR ---
REPORT GIVEN AND CARE TRANSFERED TO ADILIA RN ROOM 122B. TRANSFERED VIA GURNEY WITH VSS.
--- NOTE | 2018-04-19 21:14 | NUR ---
2109 TRANSFERRED PT TO ROOM 122B. PT BEING BAGGED WITH 100% . PT PLACED BACK ON VENT WITH SAME SETTINGS. SXNED BRIGHT RED BLOOD FROM TRACH AND SXNED PT MOUTH. PT HAS COPIOUS AMTS OF SERETIONS FROM MOUTH
[2018-04-19] MEDS ORDERED: PANT40PK PEG (21:36)
[2018-04-19] MEDS ORDERED: ASPI-1718 PEG (21:36)
[2018-04-19] MEDS ORDERED: ASCO500T45 PEG (21:36)
[2018-04-19] MEDS ORDERED: GABA-638 PEG (21:36)
[2018-04-19] MEDS ORDERED: AZITHROMYCIN 500 MG INJ VIAL IV ONE (21:44)
--- NOTE | 2018-04-19 21:59 | NUR ---
PATIENT REFUSED TO LET ME DO AN EKG.
--- NOTE | 2018-04-19 21:59 | NUR ---
PLACED PT ON CONTINUOS POX
[2018-04-19] MEDS ORDERED: VANCOMYCIN PER PHARMACY MC PRN (22:10)
[2018-04-19] MEDS ORDERED: VANCOMYCIN 1GM/DEXT 5% PREMIX 200 ML IV SCH (23:00)
[2018-04-20] VITALS: BP 140/83
[2018-04-20] MEDS ORDERED: VANCOMYCIN 1,000 MG VIAL ONE (00:13)
--- NOTE | 2018-04-20 01:29 | NUR ---
LOWERED FIO2 TO 45%. SATS 100%
[2018-04-20] MEDS: DEXT 5% / NACL 0.45% 1,000 ML IV SCH ×3 (02:44→22:20)
--- NOTE | 2018-04-20 03:06 | NUR ---
PATIENT IN 45 % WITH SAT OF 100% CONTINUOUS POX. HOB ELEVATED FOR ASPIRATION PRECAUTION. LOW INTERMITTENT SUCTION CONNECTED TO G-TUBE. . PATIENT REFUSED TO REPOSITIONED.ALL NEEDS ATTENDED. NO S/S OF DISTRESS NOTED AT THIS TIME.
--- NOTE | 2018-04-20 03:36 | NUR ---
LOWERED FIO2 TO 40% SATS 95%. PT ASLEEP AT THIS TIME. NO SOB NOTED
[2018-04-20 04:00] VITALS: BP 122/56
--- NOTE | 2018-04-20 04:30 | NUR ---
AM CARE DONE. NO S/S OF DISTRESS NOTED. HOB ELEVATED. REFUSE TO REPOSITIONED.
[2018-04-20] MEDS ORDERED: GABAPENTIN 300 MG CAP PEG SCH (05:00)
[2018-04-20 06:09] LABS: BASOPHILS % (AUTO) 0.3 % (0.0-2.0); EOSINOPHILS % (AUTO) 0.2 % (0.0-4.0); HEMATOCRIT 30.8 % (36-52); HEMOGLOBIN 9.8 g/dL (12.0-18.0); LYMPHOCYTES # (AUTO) 1.8 K/uL (2.0-11.5); LYMPHOCYTES % (AUTO) 12.1 % (20.5-51.1); MEAN CORPUSCULAR HEMOGLOBIN 28 pg (27-31); MEAN CORPUSCULAR HGB CONC 32 g/dL (33-37); MEAN CORPUSCULAR VOLUME 86.4 fL (80-94); MONOCYTES # (AUTO) 1.5 K/uL (0.8-1.0); NEUTROPHILS # (AUTO) 11.7 K/uL (1.8-7.7); NEUTROPHILS % (AUTO) 77.4 % (42.2-75.2); PLATELET COUNT (AUTO) 357 K/uL (140-450); RED BLOOD CELL COUNT(AUTO) 3.56 MIL/uL (4.20-6.10); RED CELL DISTRIBUTION WIDTH 15.4 % (11.6-13.7); WHITE BLOOD COUNT (AUTO) 15.1 K/uL (4.8-10.8)
[2018-04-20 06:21] LABS: T4 (THYROXINE) 6.7 ug/dL (4.5-12.0)
[2018-04-20 06:48] LABS: MAGNESIUM 1.9 mg/dL (1.8-2.4)
--- NOTE | 2018-04-20 07:15 | NUR ---
ENDORSEMENT GIVEN TO AM SHIFT RN AT BEDSIDE FOR CONTINUITY OF CARE. CALL LIGHT WITHIN REACH. PATIENT IN STABLE CONDITION.
--- NOTE | 2018-04-20 07:16 | NUR ---
RECEIVED BEDSIDE REPORT FROM BERRY REBOLLAR. PATIENT AAOX3. PATIENT TRACH TO VENT FIO2 40%, VT 450 ML, RATE 14, FLOW 35 L/MIN, AND PEEP 5, NO DISTRESS NOTED. SKIN INTACT, UNABLE TO AMBULATE. G TUBE IN PLACE, SITE CLEAN DRY AND INTACT. IV ON L HAND 22 G INFUSING D5 1/2 NS AT 100, IV ASYMPTOMATIC, INTACT AND PATENT. PATIENT ON TELE MONITOR AND CONTACT PRECAUTIONS IN PLACE FOR HX MDRO SPUTUM. BED IN LOW POSITION, CALL LIGHT WITHIN REACH. WILL CONTINUE TO MONITOR.
[2018-04-20 08:00] VITALS: BP 157/44
[2018-04-20 08:35] LABS: ANION GAP 7.7 (8-16); CARBON DIOXIDE 36.6 mmol/L (21-32); CREATININE 0.6 mg/dL (0.7-1.3); POTASSIUM 3.3 mmol/L (3.5-5.1)
--- NOTE | 2018-04-20 08:49 | NUR ---
PATIENT REFUSED NG TUBE INSERTION. EXPLAINED TO PATIENT NEED FOR NG TUBE INSERTION. PATIENT STILL REFUSED. DR. ARCINIEGA AWARE. WILL ATTEMPT AGAIN LATER.
[2018-04-20] MEDS: PANTOPRAZOLE 40 MG INJ VIAL IVP SCH (08:57)
[2018-04-20] MEDS ORDERED: LACTOBACILLUS RHAMNOSUS GG 1 EACH CAP PEG SCH (09:00)
[2018-04-20] MEDS ORDERED: ASCORBIC ACID 500 MG TAB PEG SCH (09:00)
[2018-04-20] MEDS ORDERED: CARVEDILOL 6.25 MG TAB PEG SCH (09:00)
[2018-04-20] MEDS ORDERED: ASPIRIN 81 MG TAB.CHEW PEG SCH (09:00)
[2018-04-20] MEDS ORDERED: FERROUS SULFATE 300 MG/5 ML UDC GT SCH (09:00)
--- NOTE | 2018-04-20 09:11 | NUR ---
ADMINISTERED SCHEDULED MEDS. PATIENT TOLERATED WELL. WILL CONTINUE TO MONITOR.
[2018-04-20] MEDS ORDERED: COL100L GT (10:15)
[2018-04-20] MEDS ORDERED: QUET50TA PO (10:15)
[2018-04-20] MEDS ORDERED: ATOR10TA PO (10:15)
[2018-04-20] MEDS ORDERED: ATI.5 PO (10:15)
[2018-04-20] MEDS ORDERED: KCL 20 MEQ/WATER INJ PREMIX 100 ML IV SCH (10:15)
[2018-04-20] MEDS ORDERED: BUPR150T12 PO (10:15)
[2018-04-20] MEDS ORDERED: MAGN400S60 PO (10:15)
[2018-04-20] MEDS ORDERED: LORazepam 0.5 MG TAB PO PRN (10:25)
--- NOTE | 2018-04-20 10:27 | NUR ---
APPLIED HEEL PROTECTORS AND PILLOW BELOW LEGS FOR OFF LOAD PRESSURE OF HEELS. PATIENT SLEEPING, ON TRACH TO VENT, NO DISTRESS NOTED. WILL CONTINUE TO MONITOR.
[2018-04-20] MEDS: VANCOMYCIN 750 MG in DEXTROSE 5% 250 ML IV SCH ×2 (11:12→23:03)
--- NOTE | 2018-04-20 11:24 | NUR ---
PATIENT REFUSED TO HAVE HEEL PROTECTORS ON. EDUCATED PATIENT ON IMPORTANCE TO PREVENT SORES ON HEEL. PATIENT STILL REFUSED. WILL CONTINUE TO MONITOR.
[2018-04-20 12:00] VITALS: BP 128/38
--- NOTE | 2018-04-20 12:05 | NUR ---
SPUTUM SPECIMEN COLLECTED THROUGH TRACHEOSTOMY TUBE USING IN-LINE VAZQUEZ SUCTION WITHOUT ANY INCIDENT. SPECIMEN SENT TO LAB.
--- NOTE | 2018-04-20 12:06 | NUR ---
ATTEMPTED TO COLLECT ABG PT REFUSED. PT BEGAN KICKING HIS LEGS AND WOULD NOT ALLOW TO PALPITATE FOR PULSE. EMPLOYEE WELLNESS/FITNESS COORDINATOR JAYANT BEDSIDE AND ALSO AWARE OF PT REFUSAL.
--- NOTE | 2018-04-20 12:23 | NUR ---
PT SUCTIONED OBTAINED LARGE AMOUNT OF THICK BLOODY SECRETIONS, AIRWAY IS PATENT AND TRACH IS SECURE. PT NOT IN ANY DISTRESS AT THIS TIME. FAMILY MEMBER IS BEDSIDE. WILL CONTINUE TO MONITOR.
[2018-04-20] MEDS ORDERED: CLINDAMYCIN 600 MG in DEXTROSE 5% 50 ML IV SCH (13:00)
[2018-04-20] MEDS: CLINDAMYCIN PHOS 600MG/D5W PM 50 ML IV SCH ×2 (13:00→21:27)
--- NOTE | 2018-04-20 13:23 | NUR ---
Yinka Delaney from [facility] , patient is on a 7 day bed hold and his sister Allison Zamora is his health care decision maker.
[2018-04-20] MEDS: LORazepam 2 MG/ML VIAL IVP PRN (13:58)
--- NOTE | 2018-04-20 14:15 | NUR ---
PT REQUESTS TO TALK , CUFF DEFLATED PT ABLE TO SPEAK. WILL CONTINUE TO MONITOR.
--- NOTE | 2018-04-20 15:10 | NUR ---
PATIENT SLEEPING. TRACH TO VENT, NO DISTRESS NOTED. WILL CONTINUE TO MONITOR.
[2018-04-20] MEDS: LEVOFLOXACIN 750 MG/D5W PREMIX 150 ML IV SCH (15:46)
[2018-04-20 16:00] VITALS: BP 134/61
--- NOTE | 2018-04-20 16:09 | NUR ---
04/20/18 RD INITIAL ASSESSMENT COMPLETED PLEASE REFER TO NUTRITION ASSESSMENT UNDER CARE ACTIVITY FOR ESTIMATED NUTRITIONAL NEEDS. 1. IF PATIENT�S SBO CONDITION RESOLVED AND MD WOULD LIKE TO START TUBE FEED, RECOMMEND TWOCAL HN AT 50 ML/HR -THIS WILL PROVIDE A VOLUME OF 1200 ML, 2400 KCAL ENERGY, 100 GRAM OF PROTEIN, AND 840 ML OF FLUID. IT MEETS 100% OF PATIENT�S ENERGY AND PROTEIN REQUIREMENT. 2. RD TO FOLLOW-UP 2-3 DAYS, HIGH RISK KELLI KONG RD
--- NOTE | 2018-04-20 16:33 | NUR ---
PATIENT REFUSED TO HAVE DIAPER CHANGED. PATIENT STATED HE WANTS US TO GET OUT OF HIS ROOM. PATIENT STATED HE WANTS A URINAL. WILL CONTINUE TO MONITOR PATIENT.
--- NOTE | 2018-04-20 17:15 | NUR ---
CHANGED PATIENTS PADS. WAS GIVEN URINAL REQUESTED BUT PATIENT STILL SOAKED CHUCKS. PATIENT STATES HE FEELS HOT, SO PATIENT WITHOUT SHEET OVER HIM. WILL CONTINUE TO MONITOR.
--- NOTE | 2018-04-20 19:05 | NUR ---
GAVE REPORT TO SMOOTH QUARLES. PATIENT ENDORSED IN STABLE CONDITION, WATCHING TV, TRACH TO VENT, NO DISTRESS NOTED.
--- NOTE | 2018-04-20 19:30 | NUR ---
RECEIVED BEDSIDE REPORT FROM SMOOTH UPTON PATIENT IN BED, TRACT TO VENT, VENT SETTINGS AT FIO2 40%, RATE 14, FLOW 35, PEEP 5. PATIENT AAOX3-4, ABLE TO FOLLOW COMMANDS AND MAKE NEEDS KNOWN, V/S TAKEN ALL WITHIN BASELINE, PATIENT DENIES PAIN. NOTED G-TUBE IN PLACE, NO TUBE FEEDINGS INFUSING, DARK LIQUID NOTED FROM G-TUBE. IV IN LEFT HAND 22 G INFUSING D5/1/2 NS AT 100 ML/HR. PATIENT ASKED TO BE SUCTIONED, SUCTIONED X 1 NO SECRETIONS NOTED. REPOSITIONED FOR COMFORT, NO BM NOTED. EXPLAINED NEED FOR STOOL SAMPLE TO SEE IF BLEEDING, PATIENT VERBALIZED HE DOESN'T CARE. EXPLAINED PLAN OF CARE, UPDATED BORED, WILL CONTINUE TO MONITOR.
--- NOTE | 2018-04-20 19:45 | NUR ---
PATIENT SHAKES HEAD "NO" WHEN ASKED IF WANTS VACCINATIONS. EDUCATION PROVIDED, PATIENT STILL REFUSED.
--- NOTE | 2018-04-20 19:50 | NUR ---
PATIENT VERBALIZED HE WANTS ATIVAN, EXPLAINED ITS Q12H, PATIENT BECAME MAD AND KICKING BED RAILS. EXPLAINED WILL GIVE WHEN DUE PATIENT VERBALIZED TO "SHUT UP".
[2018-04-20 20:00] VITALS: BP 130/60
--- NOTE | 2018-04-20 20:00 | NUR ---
CUFF DEFLATED TO TRACHEOSTOMY PATIENT VERBALLY ABUSIVE SPITTING THREATENING TO KICK CAREGIVER (JIVE DEVELOPER) JIVE DEVELOPER STATED TO PATIENT THAT IF HE KICKS AND STRIKES ME THAT I WOULD CALL SECURITY CUFF INFLATED AT THIS TIME
--- NOTE | 2018-04-20 20:04 | NUR ---
RECEIVED ON A [employer] R860 VENTILATOR PLUGGED INTO RED OUTLET TOLERATING WELL TO A WHITLEY DCT #6 AIRWAY SECURED WITH A TRACH TIE CUFF CHECKED NOTED AMBU BACK NOTED AT [facility] RADICAL-7 CONTINUOS PULSE OXIMETER AT BEDSIDE ON AND FUNCTIONING WELL LOW SATURATION SET AT 90% LOC IRRITABLE AND ABUSIVE C/O SOB HHN PRN THERAPY GIVEN AT THIS TIME GOOD CHEST RISE AIRWAY PATENT
--- NOTE | 2018-04-20 20:48 | NUR ---
RONNI FROM RADIOLOGY STATED PATIENT REFUSED LAST IMAGE OF XRAY. WILL TELL DR VICENTE.
[2018-04-20] MEDS ORDERED: QUEtiapine FUMARATE 25 MG TAB PO SCH (21:00)
--- NOTE | 2018-04-20 22:00 | NUR ---
PATIENT REPORTED TO BE SPITTING AND SWEARING TO STAFF BY RT AND GEOTHERMAL HEAT PUMP MACHINIST, RT INFLATED CUFF TO PREVENT THIS, PATIENT IS PHYSICALLY MAD DUE TO INFLATED CUFF AND BEING NONCOMPLIANT WITH STAFF, PATIENT REFUSING TO COMPLETE SMALL BOWEL FOLLOW UP IMAGES ACCORDING TO GASOLINE LOCOMOTIVE CRANE OPERATOR, DR RUTLEDGE AWARE AND ATTEMPTED TO TALK TO PATIENT TO EXPLAIN NEEDED OF IMAGES PATIENT STILL NON-COMPLIANT. DR STATED POSSIBLY ATTEMPT TO REPEAT TOMORROW MORNING IF PATIENT IS COMPLIANT. CHARGE NURSE CROW AWARE.
--- NOTE | 2018-04-20 23:39 | NUR ---
NO DISTRESS NOTED GOOD CHEST RISE
[2018-04-21] VITALS: BP 145/70
--- NOTE | 2018-04-21 00:30 | NUR ---
V/S TAKEN, PATIENT HAS LARGE BM, DARK BLACK IN COLOR. OCCULT STOOL SAMPLE COLLECTED AND SENT TO LAB. [facility] PROVIDED.
--- NOTE | 2018-04-21 01:43 | NUR ---
PATIENT REQUESTING ATIVAN FOR ANXIETY. WILL MEDICATE WHEN DUE.
--- NOTE | 2018-04-21 02:02 | NUR ---
NO SOB NOTED GOOD CHEST RISE RN AT BEDSIDE
[2018-04-21] MEDS: LORazepam 2 MG/ML VIAL IVP PRN ×4 (02:03→21:27)
--- NOTE | 2018-04-21 03:35 | NUR ---
RESTING WELL NO APPARENT RESPIRATORY DISTRESS NOTED GOOD CHEST RISE
[2018-04-21 04:00] VITALS: BP 148/60
--- NOTE | 2018-04-21 04:01 | NUR ---
V/S TAKEN BP 148/60 HR 85 DENIES PAIN. O2SAT 99%, PATIENT SHOWS NO SIGNS OF RESPIRATORY DISTRESS. WILL CONTINUE TO MONITOR.
[2018-04-21] MEDS: CLINDAMYCIN PHOS 600MG/D5W PM 50 ML IV SCH ×3 (05:26→21:40)
[2018-04-21] MEDS: DEXT 5% / NACL 0.45% 1,000 ML IV SCH ×2 (05:26→17:33)
--- NOTE | 2018-04-21 05:26 | NUR ---
DUE CLEOCIN GIVEN, STARTED NEW IVF INFUSING AT 100 ML/HR.
--- NOTE | 2018-04-21 05:50 | NUR ---
PATIENT REFUSING TO WEAR GOWN.
--- NOTE | 2018-04-21 05:50 | NUR ---
NO DISTRESS NOTED AT THIS TIME GOOD CHEST RISE DEEP TRACHEAL SUCTION FOR MODERATE THICK YELLOW SECRETIONS AIRWAY PATENT PER PATIENT REQUEST VIA SUMMER/RN FOR CUFF DEFLATION TOP FACILITATE ORAL COMMUNICATION CUFF NOW DEFLATED RN AWARE
--- NOTE | 2018-04-21 06:55 | NUR ---
PATIENT REFUSED LAB DRAW.
--- NOTE | 2018-04-21 06:57 | NUR ---
NOTIFIED DR RIBERA OF PATIENT REFUSING LABS. ASKED PROCUREMENT OFFICER TO TRY AGAIN IN ONE HOUR.
[2018-04-21] MEDS: ALBUTEROL SULFATE/IPRATROPIU 3 ML SOL IH PRN (07:22)
--- NOTE | 2018-04-21 07:22 | NUR ---
ENDORSED PATIENT TO DAY SHIFT NURSE, PATIENT STABLE.
--- NOTE | 2018-04-21 07:22 | NUR ---
RECEIVED PT ON CARESCAPE ON DOCUMENTED SETTINGS, ALARMS ARE ON AND FUNCTIONAL PT IN SEMI ASLEEP, PTS TRACH MARYJO DCT SIZE 6 IS SECURE, BS RHONCI SX LARGE YELLOW SECRETIONS, HHN GIVEN I\L WITH 3 MG DUONEB VENT PLUGGED INTO RED OUTLET BMV HOB, CONT. POX IN PLACE
--- NOTE | 2018-04-21 07:24 | NUR ---
RECEIVED BEDSIDE REPORT FROM SENIOR RECRUITER NURSE. PT IS AOX3, ABLE TO FOLLOW COMMAND AND MAKE NEEDS KNOWN. DENIES PAIN. TRACH TO VENT. NO SIGNS OF DISTRESS NOTED. IV ON L HAND 22G, PATENT AND ASYMPTOMATIC, INFUSING PER MD ORDER. IV SITE CLEAN AND DRY. SKIN INTACT, CLEAN AND DRY. BEDREST. NOTED G-TUBE IN PLACE, AND NOT FEEDING AT THIS TIME. DISCUSSES PLAN OF CARE WITH PT, AND PT REMAINS QUIET. ASKED IF PT IS OK TO TAKE BLOOD LAB, HE MOUTHED NO. SAFETY MEASURES IN PLACE. BED IN LOW POSITION, AND CALL LIGHT WITHIN REACH.
[2018-04-21 08:00] VITALS: BP 139/62
--- NOTE | 2018-04-21 09:40 | NUR ---
PT REFUSED TO TAKE BLOOD LAB. EDUCATED PT ON THE IMPORTANCE OF BLOOD LABS AND FOR MEDICATION PURPOSE. NOTIFIED.
--- NOTE | 2018-04-21 10:07 | NUR ---
PT REFUSED TO REPOSITION AND TURN. HE ALSO REFUSED TO WEAR HIS GOWN, SOCKS, AND CHANGE THE BED LINENS. EDUCATED PT ON THE IMPORTANCE OF REPOSITIONING AND OFF LOAD PRESSURE ON HIS BACK AREA. PT MOUTHED THE WORDS, " NO, I DON'T CARE." HE KEPT KICKING HIS FEET AND MOUTHED "GET OUT." JIG WORKER NOTIFIED.
--- NOTE | 2018-04-21 10:29 | NUR ---
PROVIDED URANAL FOR VOID. ASKED PT TO PUT ON HIS GOWN AND REPOSITIONING. PT REFUSED BOTH BY KICKING HIS LEGS AND MOUTHED "NO." EDUCATED PT ON THE IMPORTANCE OF REPOSITIONING AND PROVIDE HIM WITH PRIVACY.
[2018-04-21] MEDS: PANTOPRAZOLE 40 MG INJ VIAL IVP SCH (10:45)
--- NOTE | 2018-04-21 10:52 | NUR ---
PROVIDED BEDPAN FOR BM. PT HAD A BLACK, LIQUID STOOL. CLEANED PT AND CHANGED THE SOILED LINENS. PT REFUSED TO PUT ON HIS GOWN, SOCKS, AND BLANKET. EDUCATED PT ON THE IMPORTANCE OF PRIVACY AND REPOSITIONING.
--- NOTE | 2018-04-21 11:20 | NUR ---
SUCTIONED THE PT AND ELEVATED THE HEAD OF BED. PT REFUSED TO BE REPOSITIONING AND PUT ON THE GOWN, SOCKS, AND COVER BY BLANKET BY KICKING HIS LEGS AND MOUTH "NO." EDUCATION PROVIDED.
--- NOTE | 2018-04-21 11:30 | NUR ---
PER PHARMACY, DUE TO PT REFUSED BLOOD LAB AND NO VANCOMYCIN TOUGH. HOLD VANCOMYCIN. NOTIFIED.
--- NOTE | 2018-04-21 11:45 | NUR ---
COLLECTED STOOL SPECIMEN AND COMPLETED C-DIFF FORM. DELIVERED TO LAB. NOTIFIED.
[2018-04-21 12:11] LABS: FERRITIN 202 ng/mL (30-400); FOLIC ACID > 20.00 ng/mL (>3.0)
--- NOTE | 2018-04-21 12:12 | NUR ---
PT REFUSED TO TAKE HIS VITAL SIGNS. HE MOUTHED, "TAKE IT OFF FROM ME. IT HURTS! I DON'T WANT TO DO IT." EDUCATED PT ON THE IMPORTANCE OF CHECKING HIS B/P AND TEMP. PERIODICALLY. NOTIFIED.
[2018-04-21] MEDS ORDERED: POTASSIUM CHLORIDE 40 MEQ, LIDOCAINE MPF 1% - 5 mL VIAL 25 MG in NACL 0.9% 250 ML IV ONE ×2 (12:45→20:35)
--- NOTE | 2018-04-21 13:28 | NUR ---
PT WAS AGITATED. HE KEPT ON KICKING OFF THE BLANKET AND KICKING MATTRESS. ADMINISTERED PRN ATIVAN PER MD ORDER.
--- NOTE | 2018-04-21 14:19 | NUR ---
SUCTIONED PT AND PT TOLERATED WELL. PT REFUSED TO BE REPOSITION AND TURN. EDUCATION PROVIDED.
[2018-04-21] MEDS: LEVOFLOXACIN 750 MG/D5W PREMIX 150 ML IV SCH (15:42)
--- NOTE | 2018-04-21 15:55 | NUR ---
PT'S SISTER BRYCE IS AT BEDSIDE. SUCTIONED PT AND PT TOLERATED WELL.
[2018-04-21 16:00] VITALS: BP 135/63
--- NOTE | 2018-04-21 16:10 | NUR ---
DR AND RT ARE TALKING TO THE PT AND THE SISTER BRYCE REGARDING THE SPEECH EVALUATION.
--- NOTE | 2018-04-21 16:42 | NUR ---
ASKED PT AND SISTER BRYCE ABOUT CHANGING INTO CLEAN LINENS AND REPOSITIONING. PT REFUSED. EDUCATED PT AND SISTER BRYCE ON IMPORTANCE OF PRESSURE OFF LOAD ON BONY AREAS AND REPOSITIONING.
[2018-04-21] MEDS: MORPHINE SULFATE 2 MG/ML SYR IVP PRN ×2 (17:32→21:58)
--- NOTE | 2018-04-21 17:35 | NUR ---
PT C/O PAIN LEVEL 8 OUT OF 10 ON HIS L ARM. HE HAS FACE GRIMACING AND KICKING THE MATTRESS. ADMINISTERED PRN PAIN MED.
--- NOTE | 2018-04-21 19:19 | NUR ---
Received pt stable on vent support at documented settings, suctioned small amount of thin white secretions, no resp distress or SOB noted at this time, pt told me that he wants his cuff deflated so that he can talk, pt was educated on importance of cuff deflation and insists on deflation, Melany 6 trach secured/patent/midline, alarms set and audible, ambu bag at bedside, vent plugged into red outlet, cont pulse ox on, will cont to monitor.
--- NOTE | 2018-04-21 19:30 | NUR ---
RECEIVED BEDSIDE REPORT FROM DAY SHIFT RN PATIENT IN BED, TRACT TO VENT, VENT SETTINGS AT FIO2 40%, RATE 14, FLOW 35, PEEP 5. PATIENT AAOX3, ABLE TO FOLLOW COMMANDS AND MAKE NEEDS KNOWN, V/S TAKEN ALL WITHIN BASELINE, PATIENT C/O PAIN. NOTED G-TUBE IN PLACE, DRESSING INTACT, LIQUID NOTED FROM G-TUBE. IV IN LEFT HAND 22 G INFUSING D5/1/2 NS AT 100 ML/HR. EXPLAINED PLAN OF CARE, UPDATED BORED, WILL CONTINUE TO MONITOR.
--- NOTE | 2018-04-21 19:30 | NUR ---
ENDORSED PATIENT TO FIBERGLASS TUBE MOLDER NURSE FOR CONTINUITY OF CARE. PATIENT IS IN STABLE CONDITION.
[2018-04-21 19:42] LABS: MAGNESIUM 1.5 mg/dL (1.8-2.4)
[2018-04-21 19:44] LABS: ANION GAP 8.8 (8-16); CREATININE 0.7 mg/dL (0.7-1.3)
[2018-04-21 20:00] VITALS: BP 130/75
[2018-04-21 20:14] LABS: POTASSIUM 2.8 mmol/L (3.5-5.1)
--- NOTE | 2018-04-21 20:19 | NUR ---
CALL FROM LAB SPOKE WITH RAMEZ. K 2.8, NA 122, GLUCOSE 534. NOTIFIED DR GENTILE FOR ORDERS. CHARGE NURSE MIKAL DICKSON.
--- NOTE | 2018-04-21 21:20 | NUR ---
STARTED NS AT 100 ML/HR.
--- NOTE | 2018-04-21 21:22 | NUR ---
GAVE 10 UNITS HUMALOG. WILL REASSESS PATIENT. MG STILL INFUSING.
--- NOTE | 2018-04-21 21:25 | NUR ---
STARTED MG FOR MG 1.5 WILL GIVE OTHER IV MEDS ONCE COMPLETED.
--- NOTE | 2018-04-21 21:27 | NUR ---
PATIENT C/O ANXIETY GAVE ATIVAN
[2018-04-21] MEDS ORDERED: INSULIN LISPRO 100 UNITS/ML VIAL SUBQ ONE (21:30)
[2018-04-21] MEDS ORDERED: KCL 20 MEQ/WATER INJ PREMIX 200 ML IV ONE (21:30)
[2018-04-21] MEDS ORDERED: MAG SULF 2000 MG/WATER PREMIX 50 ML IV SCH (21:30)
[2018-04-21] MEDS ORDERED: MAG SULF 2000 MG/WATER PREMIX 50 ML IV ONE (21:30)
[2018-04-21] MEDS: NACL 0.9% 1,000 ML IV SCH (21:40)
--- NOTE | 2018-04-21 21:58 | NUR ---
PATIENT C/O SEVERE PAIN IN BACK 09/29. GAVE MORPHINE.
--- NOTE | 2018-04-21 22:36 | NUR ---
REASSESSED BG 73. WILL NOTIFY PATIENT WANTS ICE CHIPS WILL ASK FOR ORDER. MG STILL INFUSING.
--- NOTE | 2018-04-21 22:43 | NUR ---
NOTIFIED DR GENTILE OF BG 73 NO NEW ORDERS AT THIS TIME. OKAY TO GIVE ICE CHIPS BUT SLOWLY AND WITH ASPIRATION PRECAUTIONS IN PLACE.
[2018-04-21] MEDS: LINEZOLID 600MG PREMIX 300 ML IV SCH (23:45)
[2018-04-22] VITALS: BP 140/70
[2018-04-22] MEDS ORDERED: KCL 20 MEQ/WATER INJ PREMIX 100 ML IV ONE
--- NOTE | 2018-04-22 00:11 | NUR ---
CALL FROM LAB PATIENT IS POSITIVE FOR C-DIFF. WILL NOTIFY DR FOR ORDERS.
--- NOTE | 2018-04-22 00:59 | NUR ---
K INFUSING PATIENT IS NOT C/O PAIN AT THIS TIME
[2018-04-22 01:04] LABS: ANION GAP 10.5 (8-16); CARBON DIOXIDE 27.2 mmol/L (21-32); CREATININE 0.6 mg/dL (0.7-1.3)
[2018-04-22 01:09] LABS: POTASSIUM 2.7 mmol/L (3.5-5.1)
--- NOTE | 2018-04-22 01:10 | NUR ---
CHARGE NURSE MIKAL STATED CALL FROM LAB K 2.7. HOWEVER STARTED K RIDER AT 1256 SO ITS NOT ACCURATE SINCE LABS WERE DRAWN BEFORE K RIDER STARTED. WILL CONTINUE TO MONITOR LABS.
--- NOTE | 2018-04-22 01:20 | NUR ---
DR GENTILE EXPLAINED TO PATIENT THAT HE CANT HAVE A SODA, DR EXPLAINED RISKS OF DRINKING A SODA AND WHY HE CANT ACCOMMODATE WITH THE PATIENTS REQUEST. PATIENT BECAME VERBALLY AGGRESSIVE WITH DR GENTILE.
--- NOTE | 2018-04-22 01:30 | NUR ---
CALLED DR TO REPORT STOOL POSITIVE FOR C-DIFF AND K 2.7. DR WILL PUT IN ORDERS ONCE PLAN OF CARE IS REVIEWED. CHARGE NURSE MIKAL DICKSON.
--- NOTE | 2018-04-22 01:40 | NUR ---
PATIENT C/O ANXIETY WILL GIVE ATIVAN.
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
[2018-04-22] MEDS: MORPHINE SULFATE 2 MG/ML SYR IVP PRN ×2 (03:11→10:05)
--- NOTE | 2018-04-22 03:11 | NUR ---
PATIENT C/O SEVERE PAIN / GAVE MORPHINE.
[2018-04-22 04:00] VITALS: BP 132/90
[2018-04-22] MEDS: CLINDAMYCIN PHOS 600MG/D5W PM 50 ML IV SCH (04:21)
[2018-04-22] MEDS: NACL 0.9% 1,000 ML IV SCH (05:55)
[2018-04-22] MEDS: LORazepam 2 MG/ML VIAL IVP PRN (06:01)
--- NOTE | 2018-04-22 06:01 | NUR ---
PATIENT C/O ANXIETY GAVE ATIVAN.
--- NOTE | 2018-04-22 06:44 | NUR ---
RECEIVED PT ON CARESCAPE ON DOCUMENTED SETTINGS , ALARMS ARE ON AND FUNCTIONAL, PTS TRACH SHILEY 6 IS SECURE, CUFF IS DEFLATED PER PT. DEMAND BS COARSE I\L SX PTIN HF ASLEEP, BMV HOB VENT PLUGGED INTO RED OUTLET, CONT. POX IN DEMAND
--- NOTE | 2018-04-22 07:23 | NUR ---
ENDORSED PATIENT TO DAY SHIFT NURSE PATIENT STABLE.
--- NOTE | 2018-04-22 07:24 | NUR ---
RECEIVED BEDSIDE REPORT FROM NIGHTSHIFT NURSE. PT SLEEPING IN BED. TRACH T VENT 40%FIO2. PT ON CONTINOUS PULSE OX O2 STAT 97%. RESPIRATIONS EVEN AND UNLABORED. SKIN WARM, DRY, COLOR WNL. PT EASILY AROUSED. WARM BLANKET PROVIDED PER REQUEST. NO OTHER NEEDS VOICED AT THIS TIME. POC REVIEWED. ALL SAFETY MEASURES IN PLACE. WILL CONTINUE TO MONITOR.
[2018-04-22 07:44] VITALS: BP 144/73
[2018-04-22] MEDS: LINEZOLID 600MG PREMIX 300 ML IV SCH (09:51)
[2018-04-22] MEDS: PANTOPRAZOLE 40 MG INJ VIAL IVP SCH (09:51)
--- NOTE | 2018-04-22 10:20 | NUR ---
PT COMPLAINED OF PAIN. MEDICATED WITH MORPHINE. DR. RIBERA AT BEDSIDE POC DISCUSSED PT VOICED HIS WISHES TO RETURN TO SNIFF WO TREATMENT. PT REFUSES CARE. REFUSES POSITION CHANGES. PT USES FOWL LANGUAGE.
--- NOTE | 2018-04-22 10:37 | NUR ---
[facility] CALLED, PER JAJA, ROOM 20A, ISOLATION, OK TO TRANSFER BACK TODAY, AFTER 1300.
[2018-04-22] MEDS ORDERED: MUPIROCIN CA NASAL 2% 1GM TUBE NS SCH (11:00)
[2018-04-22] MEDS ORDERED: CHLORHEXADINE GLUC 2% CLOTH TP SCH (11:00)
[2018-04-22] MEDS ORDERED: cefTRIAXone 2,000 MG in DEXTROSE 5% 100 ML IV SCH (11:00)
--- NOTE | 2018-04-22 11:30 | NUR ---
DR CASANOVA AT BEDSIDE DISCUSSED LEAVING AMA WITH PT, PT VERBALIZED FULL UNDERSTANDING OF RISKS, VERBALLY REQUESTS TO LEAVE HOSPITAL AMA IN FRONT OF SMOOTH HUTCHINS AND MYSELF.
--- NOTE | 2018-04-22 11:50 | NUR ---
SISTER BRYCE MAHER CALLED TO INFORM HER OF PT'S DECISION TO LEAVE AMA, SISTER HAS SOME QUESTIONS FOR DOCTOR, CALL TRANSFERRED TO DR CASANOVA.
[2018-04-22] MEDS ORDERED: METR500S15 IV (11:58)
[2018-04-22] MEDS ORDERED: MAGN400S60 GT/PO (11:58)
[2018-04-22] MEDS ORDERED: VAN500I GT (11:58)
[2018-04-22] MEDS ORDERED: CLIN600P4 IV (11:58)
[2018-04-22] MEDS ORDERED: SULF-58 GT/PO (11:58)
[2018-04-22] MEDS ORDERED: QUET50TA GT/PO (11:58)
[2018-04-22] MEDS ORDERED: VANCOMYCIN 500 MG VIAL PO SCH (12:00)
[2018-04-22] MEDS: ALBUTEROL SULFATE/IPRATROPIU 3 ML SOL IH PRN (12:05)
--- NOTE | 2018-04-22 12:05 | NUR ---
PT REQUESTS NEB TREATMENT, RT CALLED.
--- NOTE | 2018-04-22 12:05 | NUR ---
PT REFUSES BACTROBAN AND CHLORAHEXIDINE WIPES, ASSISTED WITH URINAL, 300 ML URINE VOIDED. PT INFORMED OF TRANSFER TO [facility] TODAY BALLING HEAD TENDER AT 1300.
--- NOTE | 2018-04-22 12:50 | NUR ---
[facility] CALLED FOR REPORT, REPORT GIVEN TO BRANDEN RETANA TO BE TRAN[place] [facility] AT 1300.
[2018-04-22] MEDS ORDERED: metroNIDAZOLE 500 MG/NS PREMIX 100 ML IV SCH (13:00)
--- NOTE | 2018-04-22 13:05 | NUR ---
[facility] HERE TO TAKE PT TO [facility] BED 20A. REPORT GIVEN TO [facility] TEAM. PT LEFT WITH ALL BELONGINGS. PT WAS ON TRACH TO VENT.
[2018-04-22 17:43] LABS: TRANSFERRIN 191 mg/dL (200 - 370)
[2018-04-23] MEDS ORDERED: PHARMACY COMMENTS MC SCH (09:00)
== END 2018-04-22 13:05 | disposition left against medical advice (07) | DRG 720 ==
LOC: MED 16:18 → MTU 19:24
PROVIDERS: ADMIT General Practice; ATTEND General Practice
PROC: 5A1945Z Respiratory Ventilation, 24-96 Consecutive Hours (ICD-10-PCS; principal; 2018-04-19)
DX: A41.9 Sepsis, unspecified organism (principal); N17.0 Acute kidney failure with tubular necrosis; J96.21 Acute and chronic respiratory failure with hypoxia; J69.0 Pneumonitis due to inhalation of food and vomit; Z99.11 Dependence on respirator [ventilator] status; K56.600 Partial intestinal obstruction, unspecified as to cause; E43 Unspecified severe protein-calorie malnutrition; Z93.0 Tracheostomy status; I50.9 Heart failure, unspecified; G82.20 Paraplegia, unspecified; I42.9 Cardiomyopathy, unspecified; R13.10 Dysphagia, unspecified; Z53.21 Procedure and treatment not carried out due to patient leaving prior to being seen by health care provider; E87.6 Hypokalemia; I11.0 Hypertensive heart disease with heart failure; D50.9 Iron deficiency anemia, unspecified; N20.0 Calculus of kidney; J96.22 Acute and chronic respiratory failure with hypercapnia; E86.0 Dehydration; E87.8 Other disorders of electrolyte and fluid balance, not elsewhere classified; F20.9 Schizophrenia, unspecified; F32.9 Major depressive disorder, single episode, unspecified; I25.10 Atherosclerotic heart disease of native coronary artery without angina pectoris; G62.9 Polyneuropathy, unspecified; M41.9 Scoliosis, unspecified; M47.815 Spondylosis without myelopathy or radiculopathy, thoracolumbar region; Z68.1 Body mass index [BMI] 19.9 or less, adult; Z74.01 Bed confinement status; Z86.73 Personal history of transient ischemic attack (TIA), and cerebral infarction without residual deficits; Z88.0 Allergy status to penicillin; Z93.1 Gastrostomy status; Z79.82 Long term (current) use of aspirin; Z79.899 Other long term (current) drug therapy; Z91.19 Patient's noncompliance with other medical treatment and regimen
CPT/HCPCS: 36415; 71045; 74250; 80048; 80053; 80202; 80305; 81001; 82150; 82272; 82607; 82728; 82746; 82948; 83036; 83540; 83605; 83690; 83735; 83880; 84100; 84436; 84443; 84484; 85025; 85610; 85730; 87045; 87070; 87081; 87086; 87186; 87205; 89055; 89220; 94003; 94640; 96374; 96376; 99285; C9113; J0456; J0696; J1815; J1956; J2020; J2060; J2270; J2405; J3370; J3475; J3480; J3490; J7030; J7042; J7060; J7620; Q0092

== ENCOUNTER 2018-04-26 18:39 | Inpatient (IN) | payer MEDICAID ==
[~2018-04-26] VITALS: Ht 172.7 cm; Wt 60.8 kg
[~2018-04-26 18:39] MED LIST changes: +ASCO500T45 PEG; +ASPI-1718 PEG; +ATOR10TA PO; +BUPR150T12 PO; +CLIN600P4 IV; +COL100L GT; +GABA-638 PEG; +MAGN400S60 GT/PO; +METR500S15 IV; +PANT40PK PEG; +QUET50TA GT/PO; -QUET50TA PO; +SULF-58 GT/PO; +VAN500I GT
--- NOTE | 2018-04-26 18:39 | NUR ---
PT BIBA ALS FROM [facility] TO BED 10
[2018-04-26 18:40] VITALS: BP 109/89
--- NOTE | 2018-04-26 18:40 | NUR ---
58 y male biba fropm cec c/o ab pain 10/10 x 3 days, active bowel sounds x 4 quadrant, cdiff precautions, pt has g-tube on L abdomen, -edema, -swelling, patient is on a vent, no bed sores, skin intact. patient came in with broken r arm in a cast, came in with 22 g left hand amr states [facility]ec nurse gave morphine 4 mg 1830, with no pain relief patient is sinus tachy 128 at this time, rr 30, 02 98, er aware and notified [facility]- hep c, depression, anxiety, resp failure, small bowel obstruction
--- NOTE | 2018-04-26 18:40 | NUR ---
vent settings acvc fi02 40 vt 450 rate 14 flow 70 peep 5 pmax 60
[2018-04-26 18:57] VITALS: BP 109/89
--- NOTE | 2018-04-26 19:01 | NUR ---
bed is down, locked, bed rail x 2
[2018-04-26] MEDS ORDERED: NACL 0.9% 1,000 ML IV ONE ×2 (19:20→22:55)
[2018-04-26] MEDS ORDERED: ONDANSETRON 4 MG/2 ML VIAL IVP ONE (19:40)
[2018-04-26] MEDS ORDERED: metroNIDAZOLE 500 MG/NS PREMIX 100 ML IV ONE (19:40)
[2018-04-26] MEDS ORDERED: fentaNYL 0.05 MG/ML VIAL IVP ONE (19:40)
[2018-04-26 19:47] LABS: HEMATOCRIT 33.5 % (36-52); MEAN CORPUSCULAR HEMOGLOBIN 28 pg (27-31); MEAN CORPUSCULAR HGB CONC 33 g/dL (33-37); MEAN CORPUSCULAR VOLUME 84.9 fL (80-94); PLATELET COUNT (AUTO) 634 K/uL (140-450); RED BLOOD CELL COUNT(AUTO) 3.95 MIL/uL (4.20-6.10); RED CELL DISTRIBUTION WIDTH 15.8 % (11.6-13.7); WHITE BLOOD COUNT (AUTO) 23.5 K/uL (4.8-10.8)
[2018-04-26 19:58] LABS: CREATININE 0.7 mg/dL (0.7-1.3)
[2018-04-26 20:03] LABS: ALBUMIN 3.2 g/dL (3.4-5.0); TOTAL BILIRUBIN 0.2 mg/dL (0.0-1.0)
[2018-04-26 21:09] LABS: LYMPHOCYTES % (MANUAL) 2 % (20-46); MONOCYTES % (MANUAL) 1 % (5-12); PLATELET COUNT,MANUAL 680 K/uL (150-450)
[2018-04-26 21:39] VITALS: BP 138/65
[2018-04-26] MEDS ORDERED: CLINDAMYCIN 900 MG in DEXTROSE 5% 100 ML IV ONE (21:55)
[2018-04-26] MEDS ORDERED: NACL 0.9% 1,000 ML IV SCH (22:11)
[2018-04-26] MEDS ORDERED: DOCUSATE SODIUM 100 MG GELCAP PO PRN (22:15)
[2018-04-26] MEDS ORDERED: MORPHINE SULFATE 2 MG/ML SYR IVP PRN (22:15)
[2018-04-26] MEDS ORDERED: ALBUTEROL SULFATE/IPRATROPIU 3 ML SOL IH PRN (22:15)
[2018-04-26] MEDS ORDERED: HYDROcodone/APAP 7.5/325 MG 1 TAB PO PRN (22:15)
[2018-04-26] MEDS ORDERED: ONDANSETRON 4 MG/2 ML VIAL IM/IVP PRN (22:15)
[2018-04-26] MEDS ORDERED: ACETAMINOPHEN 325 MG TAB PO PRN (22:15)
--- NOTE | 2018-04-26 22:18 | NUR ---
CLEOCIN NOT AVAILABLE. HOUSE SUP NOTIFIED.
--- NOTE | 2018-04-26 22:30 | NUR ---
SPOKE TO MALIKA PAGE FOR PT TO HAVE ICE CHIPS
[2018-04-26] MEDS ORDERED: CLINDAMYCIN 900 MG/6 ML VIAL IV ONE (22:35)
[2018-04-26 22:40] VITALS: BP 114/39
[2018-04-26 22:40] LABS: MAGNESIUM 1.8 mg/dL (1.8-2.4); PHOSPHORUS 4.3 mg/dL (2.5-4.9); THYROID STIMULATING HORMONE 2.57 uIU/mL (0.34-3.74)
--- NOTE | 2018-04-26 22:40 | NUR ---
ADMITTED A 58M FROM ER. CAME BY JULI. PT HAS TRACH TO VENT. O RESPIRATORY DISTRESS NOTED. ADMITTED FOR PNA. AWAKE,ALERT BUT APHASIC. CAN COMMUNICATE WITH LIPS, AND SOME SOUNDS. BEDBOUND. WITH G -TUBE CLAMPED. HL ON THE LT WRISTg#22. CLEAR AND PATENT. PT IS INCONTINENT. HAS CONDOM CATH BUT ACCIDENTALLY REMOVED. PLACED A NEW ONE. RT ARM WITH OLD SPLINT ON. REPOSITIONED PT FOR COMFORT. BED ON LOWEST POSITION. FREQUENT ROUNDS NEEDED. ROOM PLACED CLOSE TO STATION. CALL LIGHT WITHIN EASY REACH. INITIATE HIGH RISK FOR FALL AND CONTACT/BLEACH ISOLATION PRECAUTION DUE TO HX: MRSA NARES,SPUTUM AND STOOL C DIFF. WILL FOLLOW UP ADMIT ORDERS. WILL CONTINUE TO MONITOR.
--- NOTE | 2018-04-26 22:40 | NUR ---
Patient will be admitted to care of MD FLORES. Admited to [facility]. Will go to room 123A. Belongings list completed. Report to SMOOTH SIMS.
[2018-04-26] MEDS ORDERED: DEXT 5% /NACL 0.9% 1,000 ML IV SCH (23:25)
[2018-04-26] MEDS ORDERED: MAGNESIUM HYDROXIDE 2400 MG/30 ML UDC GT PRN (23:25)
--- NOTE | 2018-04-26 23:43 | NUR ---
2250 TRANSFERED PT TO ROOM 123B. PATIENT BEING BAGGED AND PLACED BACK ON VENT WITH SAME SETTINGS. TRACH CARE DONE AND VAZQUEZ AND HME CHANGED. HHNTX GIVEN TO PT. PT REFUSED EKG AND ABG, DR SOLORIO AWARE
--- NOTE | 2018-04-26 23:45 | NUR ---
2130 SPUTUM SAMPLE UPTAINED BY RT RICHARD AND SENT TO LAB
--- NOTE | 2018-04-27 | NUR ---
PT PULLED UP AND REPOSITIONED REQUESTED. VANCOMYCIN GIVEN ORDERED VIA GT TUBE FEEDING TOLERATED NO RESIDUAL NOTED, RATE INCREASED TO 15MLS/HR. Addendum: 04/28/18 at 0238 by Helena Pyle RN AMEND DATE TO 04/28/18 AT 0000 NOT 04/27/18.
--- NOTE | 2018-04-27 00:10 | NUR ---
SEJAL SOLORIO,RESIDENT MD HERE AND SAID WE NEED TO COLLECT URINE SPECIMEN.
--- NOTE | 2018-04-27 01:30 | NUR ---
MADE ROUNDS. ASLEEP. WITH NO ACUTE RESPIRATORY DISTRESS NOTED.
[2018-04-27] MEDS ORDERED: WATER STERILE 20 ML MC ONE (01:38)
[2018-04-27] MEDS: VANCOMYCIN 500 MG VIAL GT SCH ×4 (01:44→18:00)
--- NOTE | 2018-04-27 03:30 | NUR ---
MADE ROUNDS. PT IS SLEEP. O2 SAT 100%. IVF STILL INFUSING WELL. WILL CONTINUE TO MONITOR.
--- NOTE | 2018-04-27 03:58 | NUR ---
PT TO START HEPARIN SUBQ THIS AM. SEQUENTIAL MACHINE NOT INDICATED.
[2018-04-27 04:00] VITALS: BP 104/55
--- NOTE | 2018-04-27 04:00 | NUR ---
PT REPOSITIONED FOR COMFORT. NO DISTRESS NOTED.
[2018-04-27] MEDS ORDERED: CLINDAMYCIN 600 MG/4 ML VIAL ONE (04:29)
[2018-04-27] MEDS: GABAPENTIN 300 MG CAP PEG SCH ×3 (04:51→21:25)
[2018-04-27] MEDS: metroNIDAZOLE 500 MG/NS PREMIX 100 ML IV SCH ×3 (04:51→21:50)
[2018-04-27] MEDS ORDERED: CLINDAMYCIN 600 MG in DEXTROSE 5% 50 ML IV SCH (05:00)
--- NOTE | 2018-04-27 06:00 | NUR ---
HAS BEEN REPOSITIONED FOR COMFORT.PT WAS INCONTINENT OF URINE. WAS ALL WET WHEN HE CAME FROM ER. NO URINE SPECIMEN THIS AM . WILL ENDORSED THE NEED FOR UA, CULTURE.
[2018-04-27] MEDS: PANTOPRAZOLE 40 MG INJ VIAL IVP SCH (06:04)
[2018-04-27 06:50] LABS: BASOPHILS % (AUTO) 0.3 % (0.0-2.0); EOSINOPHILS # (AUTO) 0.3 K/uL (0-0.4); EOSINOPHILS % (AUTO) 2.7 % (0.0-4.0); HEMOGLOBIN 8.6 g/dL (12.0-18.0); LYMPHOCYTES # (AUTO) 2.5 K/uL (2.0-11.5); LYMPHOCYTES % (AUTO) 24.1 % (20.5-51.1); MEAN CORPUSCULAR HEMOGLOBIN 28 pg (27-31); MEAN CORPUSCULAR HGB CONC 32 g/dL (33-37); MONOCYTES # (AUTO) 0.6 K/uL (0.8-1.0); NEUTROPHILS % (AUTO) 66.9 % (42.2-75.2); PLATELET COUNT (AUTO) 397 K/uL (140-450); RED BLOOD CELL COUNT(AUTO) 3.04 MIL/uL (4.20-6.10); RED CELL DISTRIBUTION WIDTH 15.7 % (11.6-13.7); WHITE BLOOD COUNT (AUTO) 10.5 K/uL (4.8-10.8)
[2018-04-27 07:20] LABS: ANION GAP 11.5 (8-16); CARBON DIOXIDE 25.5 mmol/L (21-32); CREATININE 0.7 mg/dL (0.7-1.3)
--- NOTE | 2018-04-27 07:32 | NUR ---
ENDORSED PT IN STABLE CONDITION TO AM NURSE.
--- NOTE | 2018-04-27 07:33 | NUR ---
RECEIVED REPORT FROM DESIGN QUALITY ENGINEER NURSE FOR CONTINUITY OF CARE. PT IN STABLE CONDITION. RESPIRATIONS EVEN AND UNLABORED. TRACH TO VENT INTACT AND PATENT. IV INTACT AND PATENT. G-TUBE INTACT AND PATENT. SAFETY MEASURES IN PLACE. BED IN LOW POSITION, BED ALARM ON, CALL LIGHT AT BEDSIDE. WILL CONTINUE TO MONITOR.
--- NOTE | 2018-04-27 07:58 | NUR ---
CRITICAL LABS: GLUCOSE 528, CALCIUM 7.8, CHLORIDE [address] DEL CASTILLO
[2018-04-27 08:00] VITALS: BP 122/64
--- NOTE | 2018-04-27 08:07 | NUR ---
PATIENT HAS BEEN SCREENED AND CATEGORIZED HIGH NUTRITION RISK. PATIENT WILL BE SEEN WITHIN 1-2 DAYS OF ADMISSION. 04/27/18-04/28/[address]
[2018-04-27] MEDS: ALBUTEROL SULFATE/IPRATROPIU 3 ML SOL IH SCH ×3 (08:09→20:13)
--- NOTE | 2018-04-27 08:16 | NUR ---
RECEIVED TRACH PT WITH A SHILEY 6 XLT TRACH ON VENT. SETTINGS AC 14, VT 450, PEEP 5 AND FIO2 40%. PT IS ASLEEP AT THIS TIME NOT IN ANY DISTRESS OR SOB. TRACH IS SECURE WITH A PATENT AIRWAY. VENT IS PLUGGED INTO A RED OUTLET WITH ALARMS ON AND FUNCTIONING. WILL CONTINUE TO MONITOR.
[2018-04-27 08:23] LABS: MAGNESIUM 1.8 mg/dL (1.8-2.4); PHOSPHORUS 3.1 mg/dL (2.5-4.9)
[2018-04-27] MEDS ORDERED: DEXTROSE 50% 50 ML SYR IVP PRN (08:55)
[2018-04-27] MEDS ORDERED: INSULIN LISPRO SLIDING SCALE 100 UNITS/ML VIAL SUBQ PRN (08:55)
[2018-04-27] MEDS ORDERED: SULFAMETH/TRIMETH 400/80MG 1 TAB PO SCH (09:00)
--- NOTE | 2018-04-27 09:00 | NUR ---
GAVE ORDERED DUE MEDICATIONS AT THIS TIME. PT TOLERATED WELL. BED IN LOW POSITION. CALL LIGHT AT BEDSIDE. BED ALARM ON. WILL CONTINUE TO MONITOR.
[2018-04-27] MEDS: DOCUSATE 100 MG/10 ML UDC GT SCH ×2 (09:09→21:00)
[2018-04-27] MEDS: LACTOBACILLUS RHAMNOSUS GG 1 EACH CAP GT SCH (09:09)
[2018-04-27] MEDS: FERROUS SULFATE 300 MG/5 ML UDC GT SCH ×2 (09:09→17:43)
[2018-04-27] MEDS: ASCORBIC ACID 500 MG TAB PEG SCH (09:10)
[2018-04-27] MEDS: buPROPion 150 MG TABER PO SCH (09:10)
[2018-04-27] MEDS: CARVEDILOL 6.25 MG TAB PEG SCH ×2 (09:10→17:43)
[2018-04-27] MEDS: ATORVASTATIN 20 MG TAB PO SCH (09:10)
[2018-04-27] MEDS: LORazepam 0.5 MG TAB PO SCH ×2 (09:11→21:25)
[2018-04-27] MEDS: QUEtiapine FUMARATE 25 MG TAB GT SCH ×2 (09:11→21:24)
[2018-04-27] MEDS: ASPIRIN 81 MG TAB.CHEW PEG SCH (09:12)
[2018-04-27] MEDS: NACL 0.9% 1,000 ML IV SCH ×2 (09:21→21:42)
--- NOTE | 2018-04-27 11:10 | NUR ---
PT IN BED IN STABLE CONDITION WITH FAMILY (SISTER BRYCE) AT BEDSIDE. RESPIRATIONS EVEN AND UNLABORED. BED IN LOW POSITION. CALL LIGHT AT BEDSIDE. BED ALARM ON. WILL CONTINUE TO MONITOR.
[2018-04-27] MEDS: BLOOD GLUCOSE MONITORING 1 DEV DEV FS SCH ×3 (11:30→21:59)
[2018-04-27 12:00] VITALS: BP 126/68
--- NOTE | 2018-04-27 12:30 | NUR ---
REPOSITIONED, AAOX4, BED IN LOW POSITION. CALL LIGHT AT BEDSIDE. BED ALARM ON. WILL CONTINUE TO MONITOR.
[2018-04-27] MEDS: PHARMACY COMMENTS MC SCH ×2 (12:58→19:23)
[2018-04-27] MEDS ORDERED: CLINDAMYCIN PHOS 600MG/D5W PM 50 ML IV SCH (13:00)
--- NOTE | 2018-04-27 14:22 | NUR ---
04/27/18 RD INITIAL ASSESSMENT COMPLETED PLEASE REFER TO NUTRITION ASSESSMENT UNDER CARE ACTIVITY FOR ESTIMATED NUTRITIONAL NEEDS. 1. CONTINUE TWOCAL HN 50 ML/HR AND H20 FLUSH 150 Q6H -THIS WILL PROVIDE A VOLUME OF 1200 ML, 2400 KCAL, 100 GRAMS OF PROTEIN, AND 1440 ML FLUID. IT MEETS 100% OF THE ENERGY NEED AND 95% OF PROTEIN NEED. 2. RD TO FOLLOW-UP 2-3 DAYS, HIGH RISK YOLIS MAHER RD
--- NOTE | 2018-04-27 14:24 | NUR ---
PT LYING IN BED WATCHING TV IN STABLE CONDITION. BED IN LOW POSITION. CALL LIGHT AT BEDSIDE. BED ALARM ON. WILL CONTINUE TO MONITOR.
[2018-04-27 16:00] VITALS: BP 120/64
--- NOTE | 2018-04-27 16:15 | NUR ---
REQUESTED TUBE FEED MONITOR FOR 123B AT THIS TIME.
[2018-04-27 16:50] LABS: ANION GAP 9.1 (8-16); CARBON DIOXIDE 29.2 mmol/L (21-32); CREATININE 0.6 mg/dL (0.7-1.3); POTASSIUM 4.3 mmol/L (3.5-5.1)
--- NOTE | 2018-04-27 18:03 | NUR ---
CONDOM CATH WAS CAME OFF. CLEANED AND REPOSITIONED PT. AAOX4. BED IN LOW POSITION. CALL LIGHT AT BEDSIDE. BED ALARM ON. WILL CONTINUE TO MONITOR.
--- NOTE | 2018-04-27 19:29 | NUR ---
WILL ENDORSE TO TROUT FARMER NURSE FOR CONTINUITY OF CARE. PT IN STABLE CONDITION.
[2018-04-27 20:00] VITALS: BP 147/99
--- NOTE | 2018-04-27 20:19 | NUR ---
PT IS AWAKE IN BED WATCHING TV NOT IN ANY DISTRESS. VENT ALARMS ON AND FUNCTIONING. TRACH IS SECURE WITH A PATENT AIRWAY. WILL CONTINUE TO MONITOR.
--- NOTE | 2018-04-27 20:20 | NUR ---
RECEIVED ENDORSEMENT OF CARE FROM KALI REBOLLAR DAYSHIFT NURSE AT BEDSIDE FOR CONTINUITY OF CARE. PT IN STABLE CONDITION. PT REPOSITIONED FOR COMFORT.
--- NOTE | 2018-04-27 20:30 | NUR ---
PT V/S FOLLOWS T 98.0 P 87 R 16 B/P 147/99 02 97% TRACH TO VENT SETTINGS. PT HAS GTUBE FEEDING 2 ROSALIA HN RUNNING AT 10MLS. 30MLS OF RESIDUAL NOTED. PT REQUESTED TO HAVE FEEDING TURNED OFF FOR A WHILE BECAUSE HE SAYS HE DOESNT WANT HIS BELLY TO BLOW UP. F/S 78. PT GIVEN 1 BOX OF JUICE VIA GT. PT GIVEN ORDERED ROUTINE MEDS BUT DECLINED COLACE SAYING THAT HIS STOOL IS ALREADY LOSE. BENEFITS AND RISKS EXPLAINED. IV SITE ON LEFT HAND INTACT AND RUNNING N/S ORDERED. IV FLAGYL DUE AND HUNG ORDERED. PT C/O OF SEVERE PAIN AND REQUESTED MORPHINE. PRN IVP MORPHINE GIVEN. PT C/O THAT IT MAKES HIM NAUSEA AND PREFERS A MORPHINE ORDER TO BE GIVEN VIA GT. HEPARIN SHOT NOT GIVEN YET DUE TO HIGH INR. WILL SPEAK TO RESIDENT MD CONCERNING REQUEST FOR CHANGE IN MORPHINE ORDER AND REGARDING HEPARIN ORDER. Addendum: 04/28/18 at 0224 by Helena Pyle RN IVP MORPHINE GIVEN ONE TIME AT 2137. NOT BEFORE.
[2018-04-27 21:00] LABS: APPEARANCE,URINE CLEAR (CLEAR); BILIRUBIN,URINE NEGATIVE (NEGATIVE); BLOOD, URINE TRACE-L (NEGATIVE); COLOR,URINE YELLOW (YELLOW); LEUKOCYTE ESTERASE ,URINE NEGATIVE (NEGATIVE); NITRITE, URINE NEGATIVE (NEGATIVE); UGLUCOSE NEGATIVE (NEGATIVE)
--- NOTE | 2018-04-27 21:00 | NUR ---
SPOKE TO PRIMARY MD AND ITS OK TO GIVE HEPARIN SHOT ALSO HE SAID THAT HE WILL CHANGE MORPHINE ORDER.
[2018-04-27 21:06] LABS: WBC,URINE 0-5 /HPF (0-5)
--- NOTE | 2018-04-27 21:30 | NUR ---
HEPARIN SHOT GIVEN ORDERED. PT REQUESTED MORPHINE FOR SEVERE PAIN. MD AWARE TO CHANGE ORDER AWAITING NEW ORDER FOR MORPHINE PRN VIA GT. PT SAID THAT HE WOULD TAKE IT ANYWAY. F/S RETAKEN IT WAS 83. NO RESIDUAL NOTED. TUBE FEED RESTATED AND INCREASED TO 15MLS/HR. WILL CONTINUE TO MONITOR FOR RESIDUAL.
--- NOTE | 2018-04-27 23:00 | NUR ---
PT CONDOM CATHETER IS OFF. ATTEMPTED TO PUT ON ANOTHER CONDOM CATHETER. . PT REFUSED SAYING IT S UNCOMFORTABLE TO PUT ON AND THE ADHESIVE AROUND THE CONDOM CATH IS UNCOMFORTABLE WHEN IT STICKS TO HIS HAIR. PT SAID THAT HE CAN TELL STAFF WHEN HE NEEDS TO USE A URINAL IF ONE IS PLACED AT BEDSIDE. PT GIVEN URINAL AT BEDSIDE. ALSO RECEIVED A CALL FROM PT EX CONCERNING PT CONDITION. SPOKE WITH PT FIRST REGARDING PT WISHES TO HAVE EX UPDATED ON HIS MEDICAL CONDITION. PT VERBALIZED THAT HE IS OK WITH EX KNOWING HIS CONDITION AND IT IS OK WITH HIM FOR HER TO BE UPDATED, AND TO PLEASE BE PUT ON CONTACT LIST. PT EX NAME IS ESPERANZA VORA NUMBER IS .
[2018-04-28] VITALS: BP 121/78
--- NOTE | 2018-04-28 00:30 | NUR ---
VANCO GIVEN ORDERED 125MG VIA GT. NO RESIDUAL NOTED. PT TUBE FEEDING RESTARTED AT 15MLS/HR. PT REPOSITIONED REQUESTED. ALL FALLS, SEIZURE AND ASPIRATION PRECAUTIONS IN PLACE. RT AT BEDSIDE CHANGING PT TRACH COLOR DRESSING. Addendum: 04/28/18 at 0242 by Helena Pyle RN PT TUBE FEEDING RUNNING AT 15MLS/HR WITH NO RESIDUAL NOTED
[2018-04-28] MEDS: VANCOMYCIN 500 MG VIAL GT SCH ×4 (00:58→17:00)
[2018-04-28] MEDS: PHARMACY COMMENTS MC SCH ×4 (00:58→17:01)
[2018-04-28 04:00] VITALS: BP 121/93
--- NOTE | 2018-04-28 04:00 | NUR ---
PT IN BED V/S FOLLOWS T 98.3 P 92 R 18 B/P 121/93 02 98% WITH ALL VENT SETTINGS.
--- NOTE | 2018-04-28 05:30 | NUR ---
DEJA HUNG ORDERED. ALL 6PM MEDS VANCOCIN, NEURONTIN GIVEN. TUBE FEEDING DISCARDED NEW TUBE FEEDING PRIMED.
[2018-04-28] MEDS: metroNIDAZOLE 500 MG/NS PREMIX 100 ML IV SCH ×3 (05:54→21:08)
[2018-04-28] MEDS: GABAPENTIN 300 MG CAP PEG SCH ×3 (06:08→20:50)
[2018-04-28] MEDS: PANTOPRAZOLE 40 MG INJ VIAL IVP SCH (06:17)
[2018-04-28] MEDS: BLOOD GLUCOSE MONITORING 1 DEV DEV FS SCH ×4 (06:24→20:44)
--- NOTE | 2018-04-28 06:45 | NUR ---
F/S 80. NO COVERAGE NEEDED. PT REQUEST MORPHINE. NONE FOUND IN [facility]. CHARGE AWARE, NONE FOUND/AVAILABLE. MANAGER ESTATE NOTIFIED.
--- NOTE | 2018-04-28 07:10 | NUR ---
BLACKING WHEEL TENDER HERE WITH MORPHINE. ENDORSED CARE TO NEXT SHIFT, TO CAROL REBOLLAR DAYSHIFT NURSE. PT IN STABLE CONDITION.
--- NOTE | 2018-04-28 07:11 | NUR ---
RECEIVED REPORT FROM THE SAND CAR WORKER NURSE AT BEDSIDE. PT IS AWAKE AND ORIENTED. PT IS ON A TRACH TO VENT. SETTING: FIO2 405; VT 450; PEEP 5; RR 14. PT IS BREATHING 21 RESPIRATIONS. PT ALSO HAS A GTUBE. CHECKED FOR PLACEMENT, RESIDUAL 20ML; PATENCY. FEEDING IS AT 30ML/HR. PT WANTS IT TURNED OFF FOR A WHILE. HE FEELS BLOATED. WILL HOLD FOR AN HOUR BEFORE RESTARTING. IV ON L HAND 22G NS AT 80ML/HR. PT ALSO HAS A SPLINT ON HIS R ARM FROM PREVIOUS FRACTURE. V/S WITHIN NORMAL. C/O PAIN /. WILL GIVE PAIN MEDS. STOOL WAS COLLECTED AND IS PENDING PER SAND CAR WORKER NURSE. SKIN INTACT. WILL CONTINUE TO MONITOR PT.
[2018-04-28] MEDS: ALBUTEROL SULFATE/IPRATROPIU 3 ML SOL IH SCH ×3 (07:30→19:33)
--- NOTE | 2018-04-28 07:36 | NUR ---
RECEIVED TRACH PT WITH A SHILEY 6 XLT TRACH ON VENT. SETTINGS AC 14, VT 450, PEEP 5 AND FIO2 40%. PT IS IN BED WATCHING TV, NURSE IS BEDSIDE. VENT IS PLUGGED INTO A RED OUTLET WITH ALARMS ON AND FUNCTIONING. TRACH IS SECURE WITH A PATENT AIRWAY. WILL CONTINUE TO MONITOR.
[2018-04-28 07:42] LABS: BASOPHILS % (AUTO) 0.3 % (0.0-2.0); EOSINOPHILS # (AUTO) 0.4 K/uL (0-0.4); EOSINOPHILS % (AUTO) 4.6 % (0.0-4.0); HEMOGLOBIN 9.2 g/dL (12.0-18.0); LYMPHOCYTES # (AUTO) 1.8 K/uL (2.0-11.5); LYMPHOCYTES % (AUTO) 20.5 % (20.5-51.1); MEAN CORPUSCULAR HEMOGLOBIN 29 pg (27-31); MEAN CORPUSCULAR HGB CONC 33 g/dL (33-37); MEAN CORPUSCULAR VOLUME 86.6 fL (80-94); MONOCYTES # (AUTO) 0.7 K/uL (0.8-1.0); MONOCYTES % (AUTO) 7.6 % (1.7-9.3); NEUTROPHILS # (AUTO) 5.9 K/uL (1.8-7.7); PLATELET COUNT (AUTO) 425 K/uL (140-450); RED BLOOD CELL COUNT(AUTO) 3.23 MIL/uL (4.20-6.10); RED CELL DISTRIBUTION WIDTH 15.6 % (11.6-13.7); WHITE BLOOD COUNT (AUTO) 8.7 K/uL (4.8-10.8)
[2018-04-28] MEDS: CARVEDILOL 6.25 MG TAB PEG SCH ×2 (07:42→16:59)
[2018-04-28] MEDS: FERROUS SULFATE 300 MG/5 ML UDC GT SCH ×2 (07:42→17:00)
[2018-04-28] MEDS: MORPHINE SULFATE ORAL SOLN 2 MG/ML UDC GT PRN ×2 (07:43→21:53)
[2018-04-28 08:00] VITALS: BP 126/62
[2018-04-28 08:21] LABS: MAGNESIUM 1.7 mg/dL (1.8-2.4); PHOSPHORUS 2.6 mg/dL (2.5-4.9)
[2018-04-28 08:23] LABS: ANION GAP 14.7 (8-16); CARBON DIOXIDE 25.4 mmol/L (21-32); CREATININE 0.6 mg/dL (0.7-1.3); POTASSIUM 4.1 mmol/L (3.5-5.1)
--- NOTE | 2018-04-28 08:38 | NUR ---
PT GETTING US OF BLE. PT REFUSED ONE LEG PER CARBON SEQUESTRATION PLANT OPERATOR. REQUESTED THE URINAL. URINATED 500ML. PT IS RESTING COMFORTABLY.
[2018-04-28] MEDS: DOCUSATE 100 MG/10 ML UDC GT SCH ×2 (09:24→20:45)
[2018-04-28] MEDS: ATORVASTATIN 20 MG TAB PO SCH (09:25)
[2018-04-28] MEDS: LACTOBACILLUS RHAMNOSUS GG 1 EACH CAP GT SCH (09:25)
[2018-04-28] MEDS: LORazepam 0.5 MG TAB PO SCH ×2 (09:26→20:50)
[2018-04-28] MEDS: buPROPion 150 MG TABER PO SCH (09:26)
[2018-04-28] MEDS: ASCORBIC ACID 500 MG TAB PEG SCH (09:26)
[2018-04-28] MEDS: QUEtiapine FUMARATE 25 MG TAB GT SCH ×2 (09:27→20:50)
[2018-04-28] MEDS: ASPIRIN 81 MG TAB.CHEW PEG SCH (09:27)
[2018-04-28] MEDS: NACL 0.9% 1,000 ML IV SCH ×2 (10:10→12:24)
--- NOTE | 2018-04-28 11:53 | NUR ---
PT REQUESTING CUFF TO BE DEFLATED TO BE ABLE TO SPEAK. PT TOLERATING WELL WILL CONTINUE TO MONITOR.
[2018-04-28 12:00] VITALS: BP 104/89
[2018-04-28] MEDS ORDERED: MAGNESIUM OXIDE 400 MG TAB GT SCH (12:15)
--- NOTE | 2018-04-28 12:44 | NUR ---
Janitorial Tech Notes: I called [facility] at and spoke to RN Katie who stated that Patient is on a bed hold and is able to return to their facility when Patient is ready and clear for discharge. I thanked her for the information and I ended the call.
--- NOTE | 2018-04-28 13:10 | NUR ---
PT REQUESTED SOME JUICE. SPOKE TO DR ALLEN, ORDERED BEDSIDE SWALLOW EVAL. STARTED WITH APPLE SAUCE. NO COUGHING, SWALLOWED WELL. TRY SOME JUICE. NO COUGHING. SWALLOWING WELL. PER PT, PT HAS A DIET AT FACILITY. PUREE, THIN. OK PER DR ALLEN TO HAVE THIN FLUIDS W/ STRAW. ORDER IN.
[2018-04-28 16:00] VITALS: BP 116/69
--- NOTE | 2018-04-28 17:32 | NUR ---
PT SUCTIONED OBTAINED SMALL AMOUNT OF PALE YELLOW SECRETIONS THICK IN VISCOSITY. PT AWAKE AND ALERT WITH FAMILY MEMBER BEDSIDE. VENT ALARMS REMAIN ON AND FUNCTIONING. TRACH IS SECURE WITH A PATENT AIRWAY.
--- NOTE | 2018-04-28 19:25 | NUR ---
RECEIVED ENDORSEMENT FROM CAROL REBOLLAR DAYSHIFT NURSE, AT BEDSIDE. PT IN STABLE CONDITION.
--- NOTE | 2018-04-28 19:25 | NUR ---
ENDORSED PT TO THE SWEET PICKLE MAKER NURSE AT BEDSIDE FOR CONTINUITY OF CARE. PT HAD A BM AND URINATED. NOW EATING DINNER. PT IS IN STABLE CONDITION.
[2018-04-28 20:00] VITALS: BP 138/74
--- NOTE | 2018-04-28 20:00 | NUR ---
SISTER AT BEDSIDE VISITING WITH PT. SISTER REQUESTED TO SPEAK TO HIS DOCTOR CONCERNING F/U FOR SMALL BOWEL SURGERY. MD DR. SOLORIO NOTIFIED OF HER REQUEST. RT AT BEDSIDE PROVIDING CARE. PT REPOSITIONED FOR COMFORT. V/S S FOLLOWS T 99.5 P 91 R 18 B/P 138/74 02 98% ON ROOM AIR.
--- NOTE | 2018-04-28 21:30 | NUR ---
DR. SOLORIO RESPONDED TO SISTERS QUESTIONS AT BEDSIDE. SISTER, KILLIAN SAID THAT DR. SOLORIO HAD ANSWERED HER QUESTIONS AND THAT SHE WAS GOING TO LEAVE. PT HAD OVER 120 RESIDUAL AND REQUESTED TO TURN OFF FEEDING TUBE. TUBE TURNED OFF. TUBE WAS TURNED OFF. PT FINGERSTICK WAS 76. PT REQUESTED JUICE AND ICE CREAM. PT ALSO REQUESTED MORPHINE FOR PAIN. PRIMARY NURSE LOOKED IN SUPPLIED PIXISIS. MEDICATION NOT THERE CHARGE, AILIN DICKSON, STORE RECEIVING SPECIALIST DIANE CALLED TO RETRIEVE MEDICATION. PT MADE AWARE.
--- NOTE | 2018-04-28 21:45 | NUR ---
PT GIVEN ALL DUE MEDS EXCEPT FOR COLACE , WHICH RESIDENT REFUSED. AND WAS RETURNED.
--- NOTE | 2018-04-28 22:00 | NUR ---
PT GIVEN MORPHINE VIA GT REQUESTED. PT REQUESTED BED BELLA AND HAD A SMALL TO MODERATE LIQUID BROWN BM. PT ALSO VOIDED 300MLS OF JUANA URINE. PT ALSO REPOSITIONED REQUESTED. PT ASKED IF HE WANTS TUBE FEEDING STARTED AND PT SAID NO LATER WE CAN RESTART IT.
--- NOTE | 2018-04-28 22:05 | NUR ---
MORPHINE WASTED AND WITNESSED BY SUMMER RN DAYSHIFT NURSE.
--- NOTE | 2018-04-28 23:00 | NUR ---
DR. GOTTLIEB INFECTION CONTROL AT BEDSIDE.
[2018-04-29] VITALS: BP 149/80
[2018-04-29] MEDS: VANCOMYCIN 500 MG VIAL GT SCH ×4 (00:15→17:20)
--- NOTE | 2018-04-29 00:45 | NUR ---
T 97.8 P 92 R 18 B/P 149/80 02 96% ON ROOM AIR. PT FEEDING TUBE OFF. RESIDUAL OF 150MLS NOTED. PT SAID HE FEELS BLOATED FROM TUBE FEEDING AND DOESNT WANT IT TURNED ON. PT ALSO SAID THAT HE WILL REFUSE ANY LAB DRAWS THIS AM. PT PULLED UP AND REPOSITIONED.
--- NOTE | 2018-04-29 02:45 | NUR ---
PT CONTINUES TO REFUSE TUBE FEEDING. PRIMARY MD DR. SOLORIO INFORMED.
--- NOTE | 2018-04-29 04:45 | NUR ---
PT REQUEST SUCTION. DONE BY PRIMARY NURSE. NOTICED PT STAT DOWN TO 77 THE BACK UP TO 88. PT SAID THAT IT TAKES TIME TO GET HIS BREATH IN HIS LUNGS POST SUCTIONING .OFFERED TO CALL RESPIRATORY DUE TO DIP IN O2. PT DECLINED. NO FURTHER S/S OF DISTRESS AFTER BEING SUCTIONED.
[2018-04-29] MEDS: metroNIDAZOLE 500 MG/NS PREMIX 100 ML IV SCH ×2 (05:49→13:28)
[2018-04-29] MEDS: GABAPENTIN 300 MG CAP PEG SCH ×2 (05:51→13:28)
[2018-04-29] MEDS: PANTOPRAZOLE 40 MG INJ VIAL IVP SCH (05:53)
[2018-04-29] MEDS: PHARMACY COMMENTS MC SCH ×4 (06:00→17:20)
[2018-04-29] MEDS: MORPHINE SULFATE ORAL SOLN 2 MG/ML UDC GT PRN ×2 (06:33→13:40)
--- NOTE | 2018-04-29 06:38 | NUR ---
PT REQUEST MORPHINE FOR SEVERE PAIN, MED NOT ON UNIT, [employer]OP AIDE DIANE CALLED MED DELIVERED TO UNIT AND ADMINISTERED VIA GT. PT ALLOWED LABS TO BE DRAWN. LAB AT BEDSIDE.
--- NOTE | 2018-04-29 06:45 | NUR ---
MORPHINE WASTED AND WITNESSED BY MOLD FILLER LINDA.
[2018-04-29] MEDS: BLOOD GLUCOSE MONITORING 1 DEV DEV FS SCH ×3 (07:06→16:28)
--- NOTE | 2018-04-29 07:06 | NUR ---
PT IN STABLE CONDITION WILL ENDOROSE CARE TO AM SHIFT.
--- NOTE | 2018-04-29 07:07 | NUR ---
RECEIVED REPORT FROM FAMILY SERVICES MANAGER RN AT BEDSIDE, PT IS AAOX4, ABLE TO FOLLOW COMMANDS AND MAKE NEEDS KNOWN, STIFFNESS OF NECK NOTED, DENIES PAIN, VSS, TRACH TO VENT WITH FIO2 40 TV 450 R 14 PEEP 5, NO S/S OF DISTRESS, CLEAR LUNG SOUNDS ANA LAURA. DENIES CHEST PAIN, REGULAR HR ANA LAURA. ROUND SOFT ABDOMEN WITH ACTIVE BOWEL SOUNDS, GT IN PLACE WITH 0 RESIDUALS, REFUSED GT FEEDING AT THIS TIME, ON CLEAR LIQUID DIET, CONTINENT WITH B&B'S, CONTRACTURE TO BUE, ABLE TO MOVE BLE. SKIN IS INTACT, WARM AND DRY TO TOUCH, IV SITE TO LEFT HAND,22GA, RUNNING NS AT 100ML/HR. HOB ELEVATED TO 30 DEGREES, SAFETY MEASURES IN PLACE, CALL LIGHT WITHIN REACH, WILL CONTINUE TO MONITOR.
[2018-04-29 07:33] LABS: BASOPHILS % (AUTO) 0.4 % (0.0-2.0); EOSINOPHILS # (AUTO) 0.2 K/uL (0-0.4); EOSINOPHILS % (AUTO) 2.6 % (0.0-4.0); HEMATOCRIT 27.3 % (36-52); LYMPHOCYTES # (AUTO) 1.6 K/uL (2.0-11.5); LYMPHOCYTES % (AUTO) 22.2 % (20.5-51.1); MEAN CORPUSCULAR HEMOGLOBIN 28 pg (27-31); MEAN CORPUSCULAR HGB CONC 33 g/dL (33-37); MEAN CORPUSCULAR VOLUME 86.3 fL (80-94); MONOCYTES # (AUTO) 0.6 K/uL (0.8-1.0); MONOCYTES % (AUTO) 8.9 % (1.7-9.3); NEUTROPHILS # (AUTO) 4.7 K/uL (1.8-7.7); NEUTROPHILS % (AUTO) 65.9 % (42.2-75.2); PLATELET COUNT (AUTO) 414 K/uL (140-450); RED BLOOD CELL COUNT(AUTO) 3.17 MIL/uL (4.20-6.10); RED CELL DISTRIBUTION WIDTH 15.8 % (11.6-13.7); WHITE BLOOD COUNT (AUTO) 7.2 K/uL (4.8-10.8)
[2018-04-29 07:57] LABS: CARBON DIOXIDE 28.3 mmol/L (21-32); CREATININE 0.6 mg/dL (0.7-1.3); POTASSIUM 3.3 mmol/L (3.5-5.1)
[2018-04-29 08:00] VITALS: BP 113/56
[2018-04-29 08:00] LABS: MAGNESIUM 1.6 mg/dL (1.8-2.4); PHOSPHORUS 2.7 mg/dL (2.5-4.9)
[2018-04-29] MEDS: ALBUTEROL SULFATE/IPRATROPIU 3 ML SOL IH SCH ×2 (08:00→13:48)
--- NOTE | 2018-04-29 08:30 | NUR ---
OFFERED REPOSITION, PT REFUSED, RISK AND BENEFIT EXPLAINED AND EDUCATED, PT STILL REFUSED.
--- NOTE | 2018-04-29 09:30 | NUR ---
SCHEDULED MEDICATION GIVEN VIA GT, PT TOLERATED WELL.
[2018-04-29] MEDS: FERROUS SULFATE 300 MG/5 ML UDC GT SCH ×2 (09:33→17:19)
[2018-04-29] MEDS: DOCUSATE 100 MG/10 ML UDC GT SCH (09:33)
[2018-04-29] MEDS: buPROPion 150 MG TABER PO SCH (09:34)
[2018-04-29] MEDS: QUEtiapine FUMARATE 25 MG TAB GT SCH (09:34)
[2018-04-29] MEDS: ASCORBIC ACID 500 MG TAB PEG SCH (09:35)
[2018-04-29] MEDS: CARVEDILOL 6.25 MG TAB PEG SCH ×2 (09:35→17:19)
[2018-04-29] MEDS: LACTOBACILLUS RHAMNOSUS GG 1 EACH CAP GT SCH (09:36)
[2018-04-29] MEDS: LORazepam 0.5 MG TAB PO SCH (09:36)
[2018-04-29] MEDS: ATORVASTATIN 20 MG TAB PO SCH (09:36)
[2018-04-29] MEDS: ASPIRIN 81 MG TAB.CHEW PEG SCH (09:37)
--- NOTE | 2018-04-29 10:30 | NUR ---
OFFERED REPOSITION AGAIN, PT REFUSED, RISK AND BENEFIT EXPLAINED AND EDUCATED, PT STILL REFUSED.
[2018-04-29] MEDS: NACL 0.9% 1,000 ML IV SCH (10:40)
--- NOTE | 2018-04-29 12:00 | NUR ---
PT C/O SEVERE PAIN TO NECK AND LOWER BACK, 08/29, MEDICATION GIVEN, MD AWARE. NO S/S OF DISTRESS.
--- NOTE | 2018-04-29 13:55 | NUR ---
PT SUCTIONED OBTAINED LARGE AMOUNTS OF THICK YELLOW SECRETIONS. AIRWAY IS PATENT AND TRACH IS SECURE. CUFF REMAINS DEFLATED AT THIS TIME FOR PT TO SPEAK. PT IN BED WATCHING TV NO SOB/NO DISTRESS NOTED.
[2018-04-29] MEDS ORDERED: VAN500I GT (14:26)
[2018-04-29] MEDS ORDERED: LACT10CA1 PO (14:26)
[2018-04-29] MEDS ORDERED: METR500S15 IV (14:26)
[2018-04-29] MEDS ORDERED: ROC1PM IV (14:26)
[2018-04-29 15:46] VITALS: BP 116/63
[2018-04-29 16:00] VITALS: BP 108/57
--- NOTE | 2018-04-29 16:04 | NUR ---
CALLED [facility] AND SPOKE WITH [employer] OFFICE EQUIPMENT INSTALLER, SHE STATED THAT ROOM 20-A WILL BE READY AFTER 7PM TONIGHT. SET UP [facility] TRANSPORTATION, PER ZULEYKA FROM [facility], THEIR RN WILL BE AVAILABLE AT 1930 HRS, ETA WILL BE AT 1930 HRS WELL. PCS FORM FAXED TO [facility], CONFIRMATION ATTACHED TO CHART.
--- NOTE | 2018-04-29 16:45 | NUR ---
SPOKE TO PT'S SISTER, BRYCE ABOUT [place] [facility] [place]
--- NOTE | 2018-04-29 17:10 | NUR ---
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
--- NOTE | 2018-04-29 17:33 | NUR ---
PT NOT IN ANY DISTRESS. PT REMAINS ON DOCUMENTED VENT SETTINGS. VENT ALARMS REMAIN ON AND FUNCTIONING. TRACH IS SECURE WITH A PATENT AIRWAY.
--- NOTE | 2018-04-29 19:15 | NUR ---
REPORT GIVEN TO DIVORCE MEDIATOR NURSE AT BEDSIDE FOR CONTINUE OF CARE.
--- NOTE | 2018-04-29 19:16 | NUR ---
RECEIVED BEDSIDE REPORT FROM DAY SHIFT NURSE BUSTER RN, PT STABLE, NO DISTRESS NOTED, IV TO L HAND 22G PATENT, INTACT, INFUSING NS @ 80ML/HR INFUSING WELL, PT TRACH TO VENT, NO SOB NOTED, INITIAL ASSESSMENT DONE, ALL SAFETY PRECAUTION MET, CALL LIGHT WITHIN REACH, PT AWAITING [employer] ASSEMBLER BY AMBULANCE, WILL CONTINUE TO MONITOR.
--- NOTE | 2018-04-29 19:35 | NUR ---
PT LEFT UNIT IN STABLE CONDITION, IV TO L HAND 22G PATENT INTACT SL, ALL BELONGING WITH PT, ACCOMPANIED WITH [facility], TO GO TO [facility].
== END 2018-04-29 19:35 | DRG 720 ==
LOC: MED 18:39 → MTU 22:13
PROVIDERS: ADMIT General Practice; ATTEND General Practice
PROC: 5A1945Z Respiratory Ventilation, 24-96 Consecutive Hours (ICD-10-PCS; principal; 2018-04-26)
DX: A41.9 Sepsis, unspecified organism (principal); J96.20 Acute and chronic respiratory failure, unspecified whether with hypoxia or hypercapnia; J69.0 Pneumonitis due to inhalation of food and vomit; A04.72 Enterocolitis due to Clostridium difficile, not specified as recurrent; Z93.0 Tracheostomy status; I50.9 Heart failure, unspecified; E44.1 Mild protein-calorie malnutrition; F20.9 Schizophrenia, unspecified; I42.9 Cardiomyopathy, unspecified; G62.9 Polyneuropathy, unspecified; I11.0 Hypertensive heart disease with heart failure; M19.90 Unspecified osteoarthritis, unspecified site; F15.90 Other stimulant use, unspecified, uncomplicated; F32.9 Major depressive disorder, single episode, unspecified; F41.9 Anxiety disorder, unspecified; J44.9 Chronic obstructive pulmonary disease, unspecified; D50.9 Iron deficiency anemia, unspecified; E83.42 Hypomagnesemia; Z93.1 Gastrostomy status; B96.5 Pseudomonas (aeruginosa) (mallei) (pseudomallei) as the cause of diseases classified elsewhere; Z68.20 Body mass index [BMI] 20.0-20.9, adult; Z87.442 Personal history of urinary calculi; Z88.0 Allergy status to penicillin; Z87.81 Personal history of (healed) traumatic fracture
CPT/HCPCS: 36415; 71045; 80048; 80053; 81001; 82150; 82948; 83036; 83605; 83690; 83735; 83880; 84100; 84443; 84484; 85025; 85610; 85730; 87040; 87070; 87081; 87086; 87186; 87205; 89055; 89220; 93005; 93925; 93970; 94002; 94003; 94640; 96365; 99285; C9113; J0696; J1644; J1815; J2270; J2405; J3010; J3370; J3490; J7030; J7042; J7060; J7620; Q0092